=== PATIENT | female | born 1945 | race African-American/Black ===

== ENCOUNTER 2017-01-26 13:24 | Emergency (ER) | payer OTHER, MEDICAID ==
[2017-01-26 13:29] VITALS: BP 184/81; BMI 30.9
--- NOTE | 2017-01-26 13:59 | DR.GENAD ---
HPI - PCP Primary Care Physician: FIOR KESSLER - Complaint/Symptoms Chief Complaint Doctors Comments: Patient fell times two last week, injured left ankle and now c/o of left lower extremity is swollen. She has had cardiac surgery by-pass and stents now doing well. Denies dyspnea. She has a cane for assistent ambulation but each time she fell was without cane. Chief Complaint:: FELL TWICE LAST WEEK AND AFTER THE FALL SHE NOTICED HER FOOT SWOLLEN AND NOW ITS UP HER LEG. - Source History Provided: Patient - Mode of Arrival Mode of Arrival: Ambulatory - Timing Onset of Chief Complaint: 01/21/17 PMH - PMH Past Medical History: Yes Past Medical History: Angina, Arthritis, Coronary Artery Disease, Diabetes, Dyslipidemia, GERD, Hypertension, [place] Past Surgical History: Yes Surgical History: CABG/Valve Surgery, Joint Replacement, Ortho Surgery - Family History History of Family Medical Conditions: Yes Family Medical History: Diabetes Mellitus, Cancer, [place], Coronary Artery Disease, Heart Failure, Hypertension - Social History Does patient currently use any type of tobacco product: No Have you used tobacco products in the last 12 months: No Type of Tobacco Use: None Does any household member use tobacco: No Alcohol Use: None Do you use any recreational Drugs:: No Lives With: Family Lives Where: Home - infectious screening In the last 2 months have you had wt loss of >10#?: NO Have you had fever, night sweats or hemotysis?: No Have you traveled outside the country in the last 6 months?: No Isolation: Standard ROS - Review of Systems Constitutional: No Symptoms Reported Eyes: No Symptoms Reported ENTM: No Symptoms Reported Respiratoy: No Symptoms Reported Cardiovascular: No Symptoms Reported Gastrointestinal/Abdominal: Abdominal Pain Neurological: No Symptoms Reported Musculoskeletal: No Symptoms Reported Integumentary: No Symptoms Reported Hematologic/Lymphatic: No Symptoms Reported Endocrine: No Symptoms Reported Psychiatric: No Symptoms Reported All Other Systems: Reviewed and Negative PE - Vital Signs Vitals: Temperature 98.8 F Pulse Rate 82 Respiratory Rate 20 Blood Pressure [Left Arm] 129/77 Blood Pressure [Right Arm] 162/74 Blood Pressure 184/81 O2 Sat by Pulse Oximetry 98 - General Limitations: No Limitations General Appearance: Alert, In No Apparent Distress - Head Head Exam: Normal Inspection - Eyes Eye exam: Normal Appearance, PERRL, EOMI - ENT ENT Exam: Normal Exam External Ear Exam: Normal External Inspection TM/Canal Exam: Bilateral Normal Nose Exam: Normal Nose Exam Mouth Exam: Normal Inspection Throat Exam: Normal Inspection - Neck Neck Exam: Normal Inspection - Chest Chest Inspection: Normal Inspection - Respiratory Respiratory Exam: Normal Lung Sounds Bilat Respiratory Exam: Bilateral Clear to Auscultation - Cardiovascular Cardiovascular Exam: Regular Rate, Bradycardia - Abdominal Exam Abdominal Exam: Normal Inspection, Normal Bowel Sounds Abdominal Tenderness: negative: RUQ, RLQ, LUQ, LLQ, Epigastrium, Suprapubic, Diffuse, Mild, Moderate, Severe, Other - Extremities Extremities Exam: Edema (left lower extremity) - Back Back Exam: Normal Inspection - Neurologic Neurological Exam: Alert, Oriented X3, CN II-XII Intact - Psychiatric Psychiatric Exam: Normal Affect - Skin Skin Exam: Warm, Dry, Intact Course - Treatment Treatment: Cast: anterior posterior - Reevaluation 1st: Improved ROR - XRAY XRAY Interpreted by: Radiologist (Nosdisplaced closed spiral fracture distal fibular shaft.) - Diagnosis Discharge Problem: Closed left fibular fracture Qualifiers: Encounter type: initial encounter Fibula location: distal Fracture morphology: unspecified fracture morphology Qualified Code(s): S82.832A - Other fracture of upper and lower end of left fibula, initial encounter for closed fracture - Discharge Plan Condition: Stable - Follow ups/Referrals Follow ups/Referrals: NANCY KESSLER [Primary Care Provider] - 3 days - Instructions
--- NOTE | 2017-01-26 14:43 | RAD ---
HISTORY: Injury, fall, left ankle pain Study: Left ankle three view Comparison: None Findings: There is an oblique spiral fracture of the shaft of the distal fibula, nondisplaced. Associated late ral soft tissue swelling is present. The distal tibia, tibiotalar joint, talus and subtalar joints a re intact. IMPRESSION: Nondisplaced closed spiral fracture distal fibular shaft Reported By:
== END 2017-01-26 15:29 | disposition home or self-care (01) ==
LOC: ER 13:30
PROC: 2W3MX1Z Immobilization of Left Lower Extremity using Splint (ICD-10-PCS; principal; 2017-01-26)
DX: S82.832A Other fracture of upper and lower end of left fibula, initial encounter for closed fracture (principal); W19.XXXA Unspecified fall, initial encounter; Y92.9 Unspecified place or not applicable
CPT/HCPCS: 29515; 36415; 73610; 85378; 99282; 99283

== ENCOUNTER → 2017-01-27 | Outpatient (CLI) | payer OTHER, MEDICAID ==
[2017-01-26 13:29] VITALS: BP 184/81
--- NOTE | 2017-01-27 17:57 | VAS ---
HISTORY: Leg pain and swelling Study: Venous Doppler study of the left leg. Comparison: None TECHNIQUE: Multiple short scale and color flow Doppler images of the deep venous system were obtaine d of the left lower extremity. FINDINGS: The deep venous system of the left lower extremity was evaluated from the level of the common femora l vein through the popliteal vein. Normal color flow and augmentation can be observed. In addition , normal compression is seen throughout the deep venous system. IMPRESSION: 1. Negative for DVT. Reported By:
== END ==
LOC: RAD 15:22
PROVIDERS: ATTEND Psychiatry & Neurology Neurology
DX: R60.0 Localized edema (principal)
CPT/HCPCS: 93971

== ENCOUNTER → 2017-03-02 | Outpatient (CLI) | payer OTHER, MEDICAID ==
--- NOTE | 2017-03-02 15:53 | RAD ---
History: Status post fall 1 month ago, fibular fracture followup. Technique: AP and lateral views of the left foreleg Comparison: Radiographs of the left ankle dated 01/26/2017 Findings: There is a casting material present which obscures evaluation of fine bony detail. There is soft tis yvette swelling along the lateral aspect of the foreleg. There is generalized osteopenia. There is a tr ansverse fracture through the distal fibular diaphysis approximate 3.7 cm proximal to the tibial brenda fond, which demonstrates approximately 2 mm posterior displacement of the distal fragment. Remainder of the osseous structures appear intact. No significant callus formation is appreciated. Impression: 1. Nondisplaced fracture of the distal fibular diaphysis as discussed above, without evidence of sig nificant healing/callus formation. 2. Osteopenia Reported By:
== END | disposition home or self-care (01) | DRG 556 ==
LOC: RAD 12:03
PROVIDERS: ATTEND Specialist
DX: M79.662 Pain in left lower leg (principal); M85.862 Other specified disorders of bone density and structure, left lower leg; S82.832A Other fracture of upper and lower end of left fibula, initial encounter for closed fracture; X58.XXXA Exposure to other specified factors, initial encounter
CPT/HCPCS: 73590

== ENCOUNTER → 2017-03-22 | Outpatient (CLI) | payer OTHER, MEDICAID ==
--- NOTE | 2017-03-22 11:07 | RAD ---
HISTORY: Bilateral shoulder pain. Study: Multiple views of the bilateral shoulders. Comparison: Left shoulder series dated September 06, 2016. 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 Associated subacromial spurr ing. Mild/moderate osteoarthritis of the bilateral glenohumeral joints. The soft tissues are unrema rkable. The visualized lung is clear. IMPRESSION: Chronic findings as above. Reported By:
[2017-03-22 11:10] LABS: BASOPHILS % (AUTO) 0.4 % (0.2-1.0); EOSINOPHILS # (AUTO) 0.2 x10^3/uL (0.0-0.2); EOSINOPHILS % (AUTO) 3.5 % (0.9-2.9); HEMATOCRIT 35.6 % (36.0-47.0); HEMOGLOBIN 11.9 g/dL (12.0-16.0); LYMPHOCYTES # (AUTO) 2.3 X10^3/uL (1.3-2.9); LYMPHOCYTES % (AUTO) 36.3 % (21.0-51.0); MEAN CORPUSCULAR HEMOGLOBIN 27.2 pg (27.0-34.0); MEAN CORPUSCULAR HGB CONC 33.5 g/dL (33.0-35.0); MEAN CORPUSCULAR VOLUME 81.4 fL (80.0-100.0); MEAN PLATELET VOLUME 7.9 fL (7.4-11.0); MONOCYTES # (AUTO) 0.4 x10^3/uL (0.3-0.8); MONOCYTES % (AUTO) 6.5 % (0.0-13.0); NEUTROPHILS # (AUTO) 3.3 x10^3/uL (2.2-4.8); NEUTROPHILS % (AUTO) 53.3 % (42.0-75.0); PLATELET COUNT 251 X10^3/uL (150.0-450.0); RED BLOOD COUNT 4.37 X10^6/uL (3.5-5.4); RED CELL DISTRIBUTION WIDTH 15.9 % (11.6-16.5); WHITE BLOOD COUNT 6.2 X10^3/uL (3.6-10.0)
[2017-03-22 11:19] LABS: HEMOGLOBIN A1C 7.7 % (4.5-6.2)
[2017-03-22 11:30] LABS: ALANINE AMINOTRANSFERASE 16 Units/L (12-78); ALKALINE PHOSPHATASE 114 Units/L (46-116); ASPARTATE AMINO TRANSFERASE 12 Units/L (15-37); BILIRUBIN,DIRECT 0.07 mg/dL (0-0.2); BLOOD UREA NITROGEN 15 mg/dL (7-18); CALCIUM 8.8 mg/dL (8.5-10.1); CARBON DIOXIDE 26.5 mmol/L (21-32); CHLORIDE 108 mmol/L (98-107); CHOL/HDL RATIO 3.2 (0.0-5.0); CHOLESTEROL 124 mg/dL (0-200); CREATININE 1.87 mg/dL (0.55-1.02); GLUCOSE 87 mg/dL (65-99); HDL CHOLESTEROL 39 mg/dL (40-60); SODIUM 142 mmol/L (136-145); T4 (THYROXINE) 11.6 ug/dL (4.7-13.3); TOTAL PROTEIN 7.4 g/dL (6.4-8.2); TRIGLYCERIDES 106 mg/dL (0-150); TSH (3RD GENERATION) 0.736 uIU/mL (0.358-3.74); eGFR BLACK RACES 34 (>60); eGFR NON BLACK RACES 28 (>60)
[2017-03-22 11:39] LABS: CREATININE,URINE 46.58 mg/dL (29-226); MICROALBUMIN,URINE 21.6 mg/L
== END ==
LOC: RAD 10:17
PROVIDERS: ATTEND Nurse Practitioner Family
DX: M25.511 Pain in right shoulder (principal); M25.512 Pain in left shoulder; E78.4 Other hyperlipidemia; E11.29 Type 2 diabetes mellitus with other diabetic kidney complication; I10 Essential (primary) hypertension; M85.9 Disorder of bone density and structure, unspecified
CPT/HCPCS: 36415; 73030; 80048; 80061; 80076; 82043; 82306; 83036; 84436; 84443; 85025

== ENCOUNTER → 2017-03-30 | Outpatient (CLI) | payer OTHER, MEDICAID ==
--- NOTE | 2017-03-30 10:39 | RAD ---
HISTORY: Follow up fibular fracture Study: Left ankle three views Comparison: January 26, 2017 Findings: The previously noted distal fibular fracture is again identified. There is evidence for healing. Hea ling is not complete. Position alignment is unchanged. The distal tibia and tibiotalar joints are in tact. Lateral soft tissue swelling remains. IMPRESSION: Healing distal fibular shaft fracture Reported By:
== END ==
LOC: RAD 09:55
PROVIDERS: ATTEND Orthopaedic Surgery
DX: S82.65XA Nondisplaced fracture of lateral malleolus of left fibula, initial encounter for closed fracture (principal); X58.XXXA Exposure to other specified factors, initial encounter
CPT/HCPCS: 73610

== ENCOUNTER → 2017-04-06 | Outpatient (CLI) | payer OTHER, MEDICAID ==
--- NOTE | 2017-04-06 10:06 | MRI ---
HISTORY: Chronic low back pain, spondylolysis Study: MRI lumbar spine without contrast Comparison: None Technique: Multiplanar multi-sequence MRI of the lumbar spine was obtained. Sagittal T1, sagittal T 2, and stir weighted images, axial T1, and axial T2 images were obtained. Findings: There is grade 1 anterolisthesis L4 on L5 which appears to be due to bilateral spondylolysis at L4. The lumbar spine demonstrates otherwise normal alignment with the expected signal characteristics of the bone marrow. The conus of the cord terminates normally. T12 -- L1: No evidence for compressive disc disease. The neural foramina are patent. The joints are normal. L1 -- L2: No evidence for compressive disc disease. The neural foramina are patent. Mild facet arthr opathy is present. L2 -- L3: Mild concentric disc bulging is present contributing to mild lateral recess narrowing bila terally.. The neural foramina are patent. Bilateral facet arthropathy is present. L3 -- L4: Concentric disc bulging contributes along with ligamentous hypertrophy and facet arthropat hy to a mild spinal stenosis with mild lateral recess and foraminal narrowing bilaterally. L4 -- L5: There is grade 1 anterolisthesis L4 on L5 secondary to bilateral spondylolysis at L4. The anterolisthesis contributes along with disc bulging ligamentous hypertrophy and facet arthropathy to a severe spinal stenosis with severe lateral recess and foraminal narrowing bilaterally slightly wo rse on the left than the right. L5 -- S1: Broad-based disc protrusion effaces the thecal sac and contributes along with ligamentous hypertrophy and facet arthropathy to a relative spinal stenosis with significant lateral recess and foraminal narrowing bilaterally. IMPRESSION: As above Reported By:
== END ==
LOC: RAD 08:27
PROVIDERS: ATTEND Nurse Practitioner Family
DX: M47.896 Other spondylosis, lumbar region (principal)
CPT/HCPCS: 72148

== ENCOUNTER 2017-04-07 06:58 | Emergency (ER) | payer OTHER, MEDICAID ==
[2017-04-07] MEDS ORDERED: D50W ABBOJECT SYR ONE (07:00)
[2017-04-07] MEDS ORDERED: D5 NS 1000 ML 1,000 ML IV ONE (07:07)
[2017-04-07] MEDS ORDERED: D50W ABBOJECT SYR IV ONE (07:07)
[2017-04-07 07:08] VITALS: BMI 28.2
--- NOTE | 2017-04-07 07:19 | DR.AMS ---
HPI - Time Seen Time seen: 06:55 - Complaint Cheif Complaint Doctors Comments: Patient presented to the ED via EMS secondary to being unconscious due to low blood glucose. IV access was unable to be obtained in the field. Her glucose was less than 10mg/dl per finger stick. IV access obtained she was given D50 bolus, glucose obtained measured via accucheck of 200mg/dl. She was started on D5NS bolus. At 0725 patient is alert responding appropriately to questions. She states that she gave herself 15U of insulin yesterday AM and did not eat all day. <MEGAN UMANZOR - Last Filed: 04/07/17 08:06> PMH - PMH Past Medical History: Angina, Arthritis, Coronary Artery Disease, Diabetes, Dyslipidemia, GERD, Hypertension, [place] Past Surgical History: Yes Surgical History: CABG/Valve Surgery, Joint Replacement, Ortho Surgery - Family History Family Medical History: Diabetes Mellitus, Cancer, [place], Coronary Artery Disease, Heart Failure, Hypertension - Social History Do you use any recreational Drugs:: No <MEGAN UMANZOR - Last Filed: 04/07/17 08:06> ROS - Review of Systems Constitutional: negative: Diaphoresis Eyes: No Symptoms Reported ENTM: No Symptoms Reported Respiratoy: No Symptoms Reported Cardiovascular: No Symptoms Reported, Chest Pain Genitourinary: No Symptoms Reported Neurological: No Symptoms Reported Musculoskeletal: No Symptoms Reported Integumentary: No Symptoms Reported Hematologic/Lymphatic: No Symptoms Reported Endocrine: No Symptoms Reported Psychiatric: No Symptoms Reported All Other Systems: Reviewed and Negative <MEGAN UMANZOR - Last Filed: 04/07/17 08:06> PE - General Limitations: No Limitations General Appearance: Alert, In No Apparent Distress - Head Head Exam: Normal Inspection - Eyes Eye exam: Normal Appearance, PERRL, EOMI Pupils: Regular, Round: Bilateral - ENT ENT Exam: Normal Exam External Ear Exam: Normal External Inspection TM/Canal Exam: Bilateral Normal Nose Exam: Normal Nose Exam Mouth Exam: Normal Inspection Throat Exam: Normal Inspection - Neck Neck Exam: Normal Inspection - Chest Chest Inspection: Normal Inspection, Symmetric Chest Wall Rise - Respiratory Respiratory Exam: Normal Lung Sounds Bilat Respiratory Exam: Bilateral Clear to Auscultation - Cardiovascular Cardiovascular Exam: Regular Rate, Normal Rhythm - Abdominal Exam Abdominal Exam: Normal Inspection, Normal Bowel Sounds Abdominal Tenderness: negative: RUQ, RLQ, LUQ, LLQ, Epigastrium, Suprapubic, Diffuse, Mild, Moderate, Severe, Other - Extremities Extremities Exam: Normal Inspection, Full ROM - Back Back Exam: Normal Inspection, Full ROM - Neurological Neurological Exam: Alert, Oriented X3, CN II-XII Intact Cranial Nerve Exam: EOM Function (II, III, IV, ): Normal <MEGAN UMANZOR - Last Filed: 04/07/17 08:06> ROR - Labs Reviewed Result Diagrams: 04/07/17 07:04 04/07/17 07:04 - XRAY XRAY Interpreted by: Radiologist (chest: cardiomegaly w/o CHF) <MEGAN UMANZOR - Last Filed: 04/07/17 08:06> - Labs Reviewed Result Diagrams: 04/07/17 07:04 04/07/17 07:04 <SARAH COLEMAN - Last Filed: 04/07/17 18:47> - Labs Reviewed Laboratory: WBC 6.2 X10^3/uL (3.6-10.0) 04/07/17 07:04 RBC 4.37 X10^6/uL (3.5-5.4) 04/07/17 07:04 Hgb 12.0 g/dL (12.0-16.0) 04/07/17 07:04 Hct 35.4 % (36.0-47.0) L 04/07/17 07:04 MCV 81.0 fL (80.0-100.0) 04/07/17 07:04 MCH 27.4 pg (27.0-34.0) 04/07/17 07:04 MCHC 33.9 g/dL (33.0-35.0) 04/07/17 07:04 RDW 16.6 % (11.6-16.5) H 04/07/17 07:04 Plt Count 287 X10^3/uL (150.0-450.0) 04/07/17 07:04 MPV 7.3 fL (7.4-11.0) L 04/07/17 07:04 Neut % 43.9 % (42.0-75.0) 04/07/17 07:04 Lymph % 41.7 % (21.0-51.0) 04/07/17 07:04 [place] % 7.3 % (0.0-13.0) 04/07/17 07:04 Eos % 6.0 % (0.9-2.9) H 04/07/17 07:04 Baso % 1.1 % (0.2-1.0) H 04/07/17 07:04 Neut # 2.7 x10^3/uL (2.2-4.8) 04/07/17 07:04 Lymph # 2.6 X10^3/uL (1.3-2.9) 04/07/17 07:04 [place] # 0.5 x10^3/uL (0.3-0.8) 04/07/17 07:04 Eos # 0.4 x10^3/uL (0.0-0.2) H 04/07/17 07:04 Baso # 0.1 X10^3/uL (0.0-0.1) 04/07/17 07:04 Absolute Nucleated RBC 0.0 /100WBC 04/07/17 07:04 Sodium 145 mmol/L (136-145) 04/07/17 07:04 Corrected Sodium TNP 04/07/17 07:04 Potassium 3.6 mmol/L (3.5-5.1) 04/07/17 07:04 Chloride 111 mmol/L (98-107) H 04/07/17 07:04 Carbon Dioxide 25.3 mmol/L (21-32) 04/07/17 07:04 BUN 18 mg/dL (7-18) 04/07/17 07:04 Creatinine 1.85 mg/dL (0.55-1.02) H 04/07/17 07:04 Est GFR (MDRD) Af Amer 35 (>60) L 04/07/17 07:04 Est GFR (MDRD) Non-Af 29 (>60) L 04/07/17 07:04 Glucose 36 mg/dL (65-99) L* 04/07/17 07:04 Hemoglobin A1c 8.0 % (4.5-6.2) H 04/07/17 07:04 Calcium 8.7 mg/dL (8.5-10.1) 04/07/17 07:04 Corrected Calcium TNP 04/07/17 07:04 Total Bilirubin 0.20 mg/dL (0.2-1.0) 04/07/17 07:04 AST 12 Units/L (15-37) L 04/07/17 07:04 ALT 15 Units/L (12-78) 04/07/17 07:04 Alkaline Phosphatase 105 Units/L (46-116) 04/07/17 07:04 Creatine Kinase 160 Units/L (26-192) 04/07/17 07:04 CK-MB (CK-2) < 1.0 ng/mL (0-4.0) 04/07/17 07:04 CK/CKMB % Calc 0.6 % (<4) 04/07/17 07:04 Troponin I < 0.02 ng/mL (0-1.5) 04/07/17 07:04 Total Protein 7.3 g/dL (6.4-8.2) 04/07/17 07:04 Albumin 3.6 g/dL (3.4-5.0) 04/07/17 07:04 Globulin 3.7 g/dL (2.5-4.5) 04/07/17 07:04 Albumin/Globulin Ratio 1.0 Ratio (1.1-2.1) L 04/07/17 07:04 (SARAH COLEMAN) <MEGAN UMANZOR - Last Filed: 04/07/17 08:06> <SARAH COLEMAN - Last Filed: 04/07/17 18:47> - Diagnosis Discharge Problem: Hypoglycemia - Discharge Plan Disposition: 01 HOME, SELF-CARE Condition: Stable - Follow ups/Referrals Follow ups/Referrals: CHIQUITA MAXWELL [Primary Care Provider] - 3 days - Instructions Instructions: Hypoglycemia, Blood Glucose Monitoring, Adult, Hypoglycemia, Easy -to-Read
[2017-04-07 07:23] LABS: BASOPHILS # (AUTO) 0.1 X10^3/uL (0.0-0.1); BASOPHILS % (AUTO) 1.1 % (0.2-1.0); EOSINOPHILS # (AUTO) 0.4 x10^3/uL (0.0-0.2); HEMATOCRIT 35.4 % (36.0-47.0); LYMPHOCYTES # (AUTO) 2.6 X10^3/uL (1.3-2.9); LYMPHOCYTES % (AUTO) 41.7 % (21.0-51.0); MEAN CORPUSCULAR HEMOGLOBIN 27.4 pg (27.0-34.0); MEAN CORPUSCULAR HGB CONC 33.9 g/dL (33.0-35.0); MEAN PLATELET VOLUME 7.3 fL (7.4-11.0); MONOCYTES # (AUTO) 0.5 x10^3/uL (0.3-0.8); MONOCYTES % (AUTO) 7.3 % (0.0-13.0); NEUTROPHILS # (AUTO) 2.7 x10^3/uL (2.2-4.8); NEUTROPHILS % (AUTO) 43.9 % (42.0-75.0); PLATELET COUNT 287 X10^3/uL (150.0-450.0); RED BLOOD COUNT 4.37 X10^6/uL (3.5-5.4); RED CELL DISTRIBUTION WIDTH 16.6 % (11.6-16.5); WHITE BLOOD COUNT 6.2 X10^3/uL (3.6-10.0)
--- NOTE | 2017-04-07 07:49 | RAD ---
HISTORY: Hypoglycemia, unresponsive Study: Chest one view Comparison: November 05, 2016 Findings: The trachea is midline. The cardiac silhouette is enlarged. No congestive heart failure is noted.. The lungs are clear without focal infiltrate or effusion. The bony thorax is unremarkable. The pa tient is status post median sternotomy and CABG. IMPRESSION: 1. Cardiomegaly without congestive heart failure 2. Lungs clear Reported By:
[2017-04-07 07:59] LABS: ALANINE AMINOTRANSFERASE 15 Units/L (12-78); ALBUMIN 3.6 g/dL (3.4-5.0); ALKALINE PHOSPHATASE 105 Units/L (46-116); ASPARTATE AMINO TRANSFERASE 12 Units/L (15-37); BLOOD UREA NITROGEN 18 mg/dL (7-18); CALCIUM 8.7 mg/dL (8.5-10.1); CARBON DIOXIDE 25.3 mmol/L (21-32); CHLORIDE 111 mmol/L (98-107); CKMB % 0.6 % (<4); CREATINE KINASE 160 Units/L (26-192); CREATINE KINASE MB < 1.0 ng/mL (0-4.0); CREATININE 1.85 mg/dL (0.55-1.02); SODIUM 145 mmol/L (136-145); TOTAL PROTEIN 7.3 g/dL (6.4-8.2); TROPONIN I < 0.02 ng/mL (0-1.5); eGFR BLACK RACES 35 (>60); eGFR NON BLACK RACES 29 (>60)
[2017-04-07 08:00] LABS: GLUCOSE 36 mg/dL (65-99)
[2017-04-07] MEDS ORDERED: NS 1000 ML 1,000 ML ONE (08:09)
[2017-04-07 08:38] VITALS: BP 153/69
[2017-04-07 08:39] LABS: SERUM ACETONE NEGATIVE (NEGATIVE)
[2017-04-07] MEDS ORDERED: NS 1000 ML 1,000 ML IV SCH (09:00)
== END 2017-04-07 08:44 | disposition home or self-care (01) ==
LOC: ER 06:58
DX: E16.2 Hypoglycemia, unspecified (principal); I51.7 Cardiomegaly
CPT/HCPCS: 36415; 71010; 80053; 82009; 82550; 82553; 83036; 84484; 85025; 93005; 93010; 96365; 96374; 96375; 99283; A4222; J3490

== ENCOUNTER → 2017-07-05 | Outpatient (CLI) | payer OTHER, MEDICAID ==
--- NOTE | 2017-07-07 12:40 | RAD ---
HISTORY: Degenerative disc disease. Study: Three views of the thoracic spine and five views of the lumbar spine. Comparison: Lumbar spine series dated March 21, 2013. Findings: 12 rib-bearing thoracic vertebra and 5 [id number] lumbar vertebra. No acute fracture. Grade 2 an terior listhesis of L4 on L5 that is likely degenerative appears unchanged given technique. Severe di sc space narrowing is also seen at L4-L5. Multilevel facet arthrosis. Moderate to severe disc space n arrowing is seen within the mid thoracic spine. Multilevel anterior disc osteophyte complexes. Diffus e osteopenia. The cardiac silhouette and lungs appear normal. Vascular calcifications. Calcified fibr oids. The SI joints are unremarkable. IMPRESSION: Chronic findings as above. Reported By:
--- NOTE | 2017-07-07 12:40 | RAD ---
HISTORY: Degenerative disc disease. Study: Three views of the thoracic spine and five views of the lumbar spine. Comparison: Lumbar spine series dated March 21, 2013. Findings: 12 rib-bearing thoracic vertebra and 5 [id number] lumbar vertebra. No acute fracture. Grade 2 an terior listhesis of L4 on L5 that is likely degenerative appears unchanged given technique. Severe di sc space narrowing is also seen at L4-L5. Multilevel facet arthrosis. Moderate to severe disc space n arrowing is seen within the mid thoracic spine. Multilevel anterior disc osteophyte complexes. Diffus e osteopenia. The cardiac silhouette and lungs appear normal. Vascular calcifications. Calcified fibr oids. The SI joints are unremarkable. IMPRESSION: Chronic findings as above. Reported By:
--- NOTE | 2017-07-07 12:49 | RAD ---
HISTORY: Degenerative disc disease. Study: 6 views of the cervical spine. Comparison: CT cervical spine dated March 11, 2011. Findings: Straightening of the normal cervical lordosis without acute fracture or listhesis. Moderate to severe disc space narrowing at C5 through C7 with associated endplate sclerosis and anterior disc osteophyt e complexes. Multilevel uncovertebral hypertrophy. Mild to moderate bilateral neural foraminal narrow ing on oblique imaging. The dens is intact. Vascular calcifications are seen. The lung apices are sabrina ar. IMPRESSION: Chronic findings as above. Reported By:
== END ==
LOC: RAD 10:33
PROVIDERS: ATTEND Nurse Practitioner Family
DX: M51.36 Other intervertebral disc degeneration, lumbar region (principal)
CPT/HCPCS: 72050; 72072; 72110

== ENCOUNTER → 2017-07-26 | Outpatient (CLI) | payer OTHER, MEDICAID ==
--- NOTE | 2017-07-26 10:20 | RAD ---
History: Follow-up of left ankle fracture Study: AP lateral and oblique views of the left ankle Comparison: March 30, 2017 Findings: There is callus formation with a healed fracture of the distal left fibular diaphysis in ov erall anatomical alignment. The ankle mortise is intact. There is peripheral distal moderate to sever e arterial vascular calcification. There are degenerative changes in the tarsal joints. Impression: Healed distal fibular fracture Reported By:
== END ==
LOC: RAD 09:04
PROVIDERS: ATTEND Nurse Practitioner Family
DX: S82.62XA Displaced fracture of lateral malleolus of left fibula, initial encounter for closed fracture (principal); X58.XXXA Exposure to other specified factors, initial encounter
CPT/HCPCS: 73610

== ENCOUNTER → 2017-10-31 | Outpatient (CLI) | payer OTHER, MEDICAID ==
--- NOTE | 2017-11-01 12:18 | MG ---
HISTORY: SCREENING Comparison: 10/05/2016 FINDINGS: Bilateral CC and MLO projections of the right and left breast were obtained. Scattered fibroglandula r tissue is seen to be present. No significant architectural distortion, mass or clustered microcalc ifications can be observed to suggest malignancy. No skin thickening or nipple retraction is appreci ated. No pathological lymphadenopathy can be identified. Benign-appearing calcifications scattered throughout the right and left breasts are observed. IMPRESSION: NO RADIOGRAPHIC EVIDENCE OF MALIGNANCY. ACR CATEGORY: 2 - benign findings. FOLLOW-UP EXAM 1 YEAR. Diagnostic CAD was utilized and reviewed. * 0 (ZERO) - ASSESSMENT INCOMPLETE; ADDITIONAL IMAGING IS NEEDED. * 1/ (ONE) - NEGATIVE. * 2/II (TWO) - BENIGN FINDINGS. * 3/III (THREE) - PROBABLY BENIGN FINDING; SHORT INTERVAL FOLLOW-UP SUGGESTED. * 4/IV (FOUR) - SUSPICIOUS ABNORMALITY; BIOPSY SHOULD BE CONSIDERED. * 5/V - HIGHLY SUSPICIOUS OF MALIGNANCY; BIOPSY SHOULD BE PERFORMED. A NEGATIVE X-RAY REPORT SHOULD NOT DELAY BIOPSY IF A DOMINANT OR CLINICALLY SUSPICIOUS MASS IS PRESENT; 4 TO 8 PERCENT OF CANCERS ARE NOT IDENTIFIED BY X-RAY. A NEGA TIVE REPORT MAY REINFORCE THE CLINICAL IMPRESSION. ADENOSIS AND DENSE BREASTS MAY OBSCURE AN UNDERLY ING NEOPLASM. Reported By:
== END ==
LOC: RAD 10:03
PROVIDERS: ATTEND Psychiatry & Neurology Neurology
DX: Z12.31 Encounter for screening mammogram for malignant neoplasm of breast (principal)
CPT/HCPCS: 77067

== ENCOUNTER 2020-11-28 09:52 | Inpatient (IN) ==
[~2020-11-28 09:52] MED LIST: LEVAQUIN PREMIX IV 750 MG 750 MG/150 ML BAG IV NR
[2020-11-28] MEDS ORDERED: D50W ABBOJECT SYR ONE (09:55)
[2020-11-28 10:10] VITALS: BMI 25.7
--- NOTE | 2020-11-28 10:17 | DR.AMS ---
HPI Time Seen Time Seen by Provider: 11/28/20 10:00 PCP Primary Care Physician: FIOR KESSLER HPI Comment HPI Comment: Patient brought in via EMS.Found unresponsive by family this morning. BS 25 per EMS. Given 1 amp D50 via EMS. patient is minimally responsive now. Answers some questions and notes that she has not been feeling well for a few days. She was not able to tell the events of last night/this morning. Complaint Chief Complaint:: EMS STATES FAMILY CALLS AND STATES PT. WAS FOUND UNRESPONSIVE THIS MORNING. INITIAL BLOOD GLUCOSE WAS 25MG/DL UPON EMS ARRIVAL. PT. WAS GIVEN ONE AMP OF D50 EN ROUTE AND PT. REMAINS UNRESPONSIVE UPON ARRIVAL TO THE ER. Source History Provided: EMS Mode of Arrival Mode of Arrival: EMS Timing Onset of Chief Complaint: 11/28/20 PMH PMH Past Medical History: Yes Past Medical History: Angina, Arthritis, Coronary Artery Disease, Diabetes, Dyslipidemia, GERD, Hypertension and RI Past Surgical History: Yes Surgical History: CABG/Valve Surgery, Joint Replacement and Ortho Surgery Family History History of Family Medical Conditions: Yes Family Medical History: Diabetes Mellitus, Cancer, RI, Coronary Artery Disease, Heart Failure and Hypertension Social History Does patient currently use any type of tobacco product: No Have you used tobacco products in the last 12 months: No Type of Tobacco Use: None Does any household member use tobacco: No Alcohol Use: None Do you use any recreational Drugs:: No Lives With: Family Lives Where: Home Infectious screening In the last 2 months have you had wt loss of >10#?: NO Have you had fever, night sweats or hemotysis?: No Have you traveled outside the country in the last 6 months?: No Isolation: Standard ROS Review of Systems Constitutional: See HPI Unable to Obtain Due To: Altered mental status PE Vitals Vital Signs: Temp Pulse Resp BP BP BP Pulse Ox 11/28/20 11:01 40 L 11 L 100/56 100 11/28/20 11:00 40 L 11 L 100 11/28/20 10:45 40 L 11 L 11/28/20 10:40 40 L 12 122/60 11/28/20 10:32 40 L 11 L 145/67 11/28/20 10:31 40 L 11 L 11/28/20 10:30 41 L 12 11/28/20 10:15 39 L 14 11/28/20 10:07 91 F L 40 L 12 127/61 100 11/28/20 10:00 40 L 13 10/29/20 07:04 203/81 10/29/20 04:00 192/110 04/07/17 08:37 153/69 General Limitations: Altered Mental Status General Appearance: In No Apparent Distress and Lethargic Head Head Exam: Normal Inspection, Atraumatic and Normocephalic Eyes Pupils: Regular, Round: Bilateral and Reactive: Bilateral ENT ENT Exam: Normal Exam and Other (large amount of snuff in mouth) Neck Neck Exam: Normal Inspection, Full ROM and Trachea Midline Chest Chest Inspection: Normal Inspection and Symmetric Chest Wall Rise Respiratory Respiratory Exam: Normal Lung Sounds Bilat Respiratory Exam: Bilateral: Clear to Auscultation Cardiovascular Cardiovascular Exam: Normal Rhythm and Bradycardia Abdominal Exam Abdominal Exam: Normal Inspection, Normal Bowel Sounds and Soft Extremities Extremities Exam: Normal Inspection Neurological Neurological Exam: Other (oriented x 1 self) Patient Oriented To: Person Skin Skin Exam: Dry and Other (cold) COURSE Reevaluation 1st: Improved (improved after rewarming, D50 bolus and D10 gtt) 2nd: Worsened (Patient remains hypothermic with Rectal temp 90.8. Patient under warming blanket. Will start warmed IVF. ) Consultation Consultation Comments: Spoke with Dr. Meyer who has accepted patient to his service. [facility] Labs Reviewed Laboratory Results Reviewed?: Yes Result Diagrams: 11/28/20 10:05 11/28/20 10:05 Laboratory: WBC 5.9 X10^3/uL (3.6-10.0) 11/28/20 10:05 RBC 4.33 X10^6/uL (3.5-5.4) 11/28/20 10:05 Hgb 11.8 g/dL (12.0-16.0) L 11/28/20 10:05 Hct 35.4 % (36.0-47.0) L 11/28/20 10:05 MCV 81.9 fL (80.0-100.0) 11/28/20 10:05 MCH 27.3 pg (27.0-34.0) 11/28/20 10:05 MCHC 33.3 g/dL (33.0-35.0) 11/28/20 10:05 RDW 18.0 % (11.6-16.5) H 11/28/20 10:05 Plt Count 323 X10^3/uL (150.0-450.0) 11/28/20 10:05 MPV 7.1 fL (7.4-11.0) L 11/28/20 10:05 Neut % (Auto) 56.1 % (42.0-75.0) 11/28/20 10:05 Lymph % (Auto) 31.4 % (21.0-51.0) 11/28/20 10:05 [place] % (Auto) 7.1 % (0.0-13.0) 11/28/20 10:05 Eos % (Auto) 4.1 % (0.9-2.9) H 11/28/20 10:05 Baso % (Auto) 1.3 % (0.2-1.0) H 11/28/20 10:05 Neut # (Auto) 3.3 x10^3/uL (2.2-4.8) 11/28/20 10:05 Lymph # (Auto) 1.8 X10^3/uL (1.3-2.9) 11/28/20 10:05 [place] # (Auto) 0.4 x10^3/uL (0.3-0.8) 11/28/20 10:05 Eos # (Auto) 0.2 x10^3/uL (0.0-0.2) 11/28/20 10:05 Baso # (Auto) 0.1 X10^3/uL (0.0-0.1) 11/28/20 10:05 Absolute Nucleated RBC 0.1 /100WBC 11/28/20 10:05 Sodium 138 mmol/L (136-145) 11/28/20 10:05 Corrected Sodium 139 mmol/L (136-145) 11/28/20 10:05 Potassium 2.1 mmol/L (3.5-5.1) L* 11/28/20 10:05 Chloride 102 mmol/L (98-107) 11/28/20 10:05 Carbon Dioxide 26.8 mmol/L (21-32) 11/28/20 10:05 BUN 21 mg/dL (7-18) H 11/28/20 10:05 Creatinine 2.21 mg/dL (0.55-1.02) H 11/28/20 10:05 Est GFR (MDRD) Af Amer 28 (>60) L 11/28/20 10:05 Est GFR (MDRD) Non-Af 23 (>60) L 11/28/20 10:05 Glucose 155 mg/dL (65-99) H 11/28/20 10:05 Calcium 8.7 mg/dL (8.5-10.1) 11/28/20 10:05 Corrected Calcium 9.5 mg/dL (8.5-10.1) 11/28/20 10:05 Total Bilirubin 0.20 mg/dL (0.2-1.0) 11/28/20 10:05 AST 17 Units/L (15-37) 11/28/20 10:05 ALT 10 Units/L (12-78) L 11/28/20 10:05 Alkaline Phosphatase 63 Units/L (46-116) 11/28/20 10:05 Ammonia < 10 umol/L (11-32) L 11/28/20 10:05 Creatine Kinase 122 Units/L (26-192) 11/28/20 10:05 CK-MB (CK-2) 2.1 ng/mL (0-4.0) 11/28/20 10:05 CK/CKMB % Calc 1.7 % (<4) 11/28/20 10:05 Troponin I < 0.02 ng/mL (0-1.5) 11/28/20 10:05 Total Protein 6.2 g/dL (6.4-8.2) L 11/28/20 10:05 Albumin 3.0 g/dL (3.4-5.0) L 11/28/20 10:05 Globulin 3.2 g/dL (2.5-4.5) 11/28/20 10:05 Albumin/Globulin Ratio 0.9 Ratio (1.1-2.1) L 11/28/20 10:05 Specimen Type Catherized urine 11/28/20 10:05 Urine Color Yellow (YELLOW) 11/28/20 10:05 Urine Appearance Hazy (CLEAR) 11/28/20 10:05 Urine pH 6.0 (5.0 - 8.0) 11/28/20 10:05 Ur Specific [place] 1.010 (1.000-1.030) 11/28/20 10:05 Urine Protein 2+ (NEGATIVE) 11/28/20 10:05 Urine Glucose (UA) Negative (NEGATIVE) 11/28/20 10:05 Urine Ketones Negative (NEGATIVE) 11/28/20 10:05 Urine Occult Blood 2+ (NEGATIVE) 11/28/20 10:05 Urine Nitrite Negative (NEGATIVE) 11/28/20 10:05 Urine Bilirubin Negative (NEGATIVE) 11/28/20 10:05 Urine Urobilinogen Normal (NORMAL) 11/28/20 10:05 Ur Leukocyte Esterase 3+ (NEGATIVE) 11/28/20 10:05 Urine RBC 3-5 /HPF (0-3) A 11/28/20 10:05 Urine WBC Tntc /HPF (0-5) A 11/28/20 10:05 Ur Squamous Epith Cells Rare /HPF (NEGATIVE) 11/28/20 10:05 Urine Bacteria 2+ /HPF (NEGATIVE) 11/28/20 10:05 Urine Mucus Few /HPF (NEGATIVE) 11/28/20 10:05 Ur Culture Indicated? Yes/culture set up 11/28/20 10:05 Urine Opiates Screen Negative (NEG=<300) 11/28/20 10:05 Urine Methadone Screen Negative (NEG=<300) 11/28/20 10:05 Ur Barbiturates Screen Negative (NEG=<200) 11/28/20 10:05 Ur Phencyclidine Scrn Negative (NEG=<25) 11/28/20 10:05 Ur Amphetamines Screen Negative (NEG=<1000) 11/28/20 10:05 U Benzodiazepines Scrn Positive (NEG=<200) A 11/28/20 10:05 Urine Cocaine Screen Negative (NEG=<300) 11/28/20 10:05 U Marijuana (THC) Screen Negative (NEG=<50) 11/28/20 10:05 Influenza Type A Ag Negative-presumptive (NEGATIVE) 11/28/20 11:10 Influenza Type B Ag Negative-presumptive (NEGATIVE) 11/28/20 11:10 SARS CoV-2 RNA Rapid TERRI Negative (NEGATIVE) 11/28/20 11:10 XRAY X-ray Results: HISTORY AMS hypertension. Diabetes. TIA. STUDY BRAIN W/O CON COMPARISON None TECHNIQUE Multiple CT axial images of the head were obtained without IV contrast. Coronal and sagittal images were reconstructed. Dose reduction techniques included Automated Exposure Control (AEC) and adjustment of mA and kV. FINDINGS Age-related findings include central and cortical atrophy with areas of low density in the periventricular white matter compatible with micro-ischemic changes. Two nodular densities are present in the right lateral ventricle ependyma. One measures 11 mm and another measures 7 mm. This could be due to metastatic disease or short matter heterotopia. Recommend MRI of the brain without and with contrast for further evaluation. No cortical infarct or hemorrhage. No midline shift.Cerebellar tonsils are at an appropriate level. No fluid in the sinuses or mucosal thickening to suggest sinusitis. There is no mastoid effusion. Dysconjugate gaze. IMPRESSION 1. 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 Recommend MRI brain without and with contrast 3. No acute infarct or hemorrhage Electronically signed by: Sincere Danielson (Nov 28, 2020 10:43:39) HISTORY AMS STUDY CHEST, 1 VIEW COMPARISON Portable chest September 13, 2019. FINDINGS The trachea is midline. The cardiac silhouette is mildly enlarged but stable.. There are sternotomy wires and surgical clips from CABG surgery. The lungs are clear without focal infiltrate or effusion. The bony thorax is unremarkable. IMPRESSION Stable mild cardiomegaly and postsurgical changes but no acute cardiopulmonary processes. No signs of CHF no significant change from September 13, 2019.. Electronically signed by: RONDA DUBON (Nov 28, 2020 10:33:55) Opioid Opioid Risk Tool Age ([place]ravon box if 16-45): No History of Preadolescent Sexual Abuse: No Total: 0 Total Score Risk Category: Low Risk Copyright: [facility] predicting aberrant behaviors Diagnosis Discharge Problem: Hypoglycemia, Hypokalemia Mental status alteration Qualifiers: Altered mental status type: somnolence Qualified Code(s): R40.0 - Somnolence Hypothermia Qualifiers: Encounter type: initial encounter Qualified Code(s): T68.XXXA - Hypothermia, initial encounter
[2020-11-28 10:26] LABS: BASOPHILS # (AUTO) 0.1 X10^3/uL (0.0-0.1); BASOPHILS % (AUTO) 1.3 % (0.2-1.0); EOSINOPHILS # (AUTO) 0.2 x10^3/uL (0.0-0.2); EOSINOPHILS % (AUTO) 4.1 % (0.9-2.9); HEMATOCRIT 35.4 % (36.0-47.0); HEMOGLOBIN 11.8 g/dL (12.0-16.0); LYMPHOCYTES # (AUTO) 1.8 X10^3/uL (1.3-2.9); LYMPHOCYTES % (AUTO) 31.4 % (21.0-51.0); MEAN CORPUSCULAR HEMOGLOBIN 27.3 pg (27.0-34.0); MEAN CORPUSCULAR HGB CONC 33.3 g/dL (33.0-35.0); MEAN CORPUSCULAR VOLUME 81.9 fL (80.0-100.0); MEAN PLATELET VOLUME 7.1 fL (7.4-11.0); MONOCYTES # (AUTO) 0.4 x10^3/uL (0.3-0.8); MONOCYTES % (AUTO) 7.1 % (0.0-13.0); NEUTROPHILS # (AUTO) 3.3 x10^3/uL (2.2-4.8); NEUTROPHILS % (AUTO) 56.1 % (42.0-75.0); PLATELET COUNT 323 X10^3/uL (150.0-450.0); RED BLOOD COUNT 4.33 X10^6/uL (3.5-5.4); WHITE BLOOD COUNT 5.9 X10^3/uL (3.6-10.0)
[2020-11-28 10:28] LABS: BILIRUBIN,URINE NEGATIVE (NEGATIVE); BLOOD/HEMOGLOBIN,URINE 2+ (NEGATIVE); GLUCOSE, URINE NEGATIVE (NEGATIVE); KETONES,URINE NEGATIVE (NEGATIVE); LEUKOCYTE ESTERASE ,URINE 3+ (NEGATIVE); NITRITES,URINE NEGATIVE (NEGATIVE); PROTEIN,URINE 2+ (NEGATIVE); UROBILINOGEN,URINE NORMAL (NORMAL)
[2020-11-28] MEDS ORDERED: DECADRON INJ ONE (10:33)
--- NOTE | 2020-11-28 10:35 | RAD ---
HISTORYAMSSTUDYCHEST, 1 VIEWCOMPARISONPortable chest September 13, 2019.FINDINGSThe trachea is midline. The cardiac silhouette is mildly enlarged but stable.. There are sternotomy wires and surgical clips from CABG surgery. The lungs are clear without focal infiltrate or effusion. The bony thorax is unremarkable.IMPRESSIONStable mild cardiomegaly and postsurgical changes but no acute cardiopulmonary processes. No signs of CHF no significant change from September 13, 2019..Electronically signed by: RONDA DUBON (Nov 28, 2020 10:33:55)
[2020-11-28 10:36] LABS: AMMONIA < 10 umol/L (11-32)
[2020-11-28 10:41] LABS: APPEARANCE,URINE HAZY (CLEAR); COLOR,URINE YELLOW (YELLOW)
[2020-11-28 10:42] LABS: BACTERIA,URINE 2+ /HPF (NEGATIVE); MUCUS,URINE FEW /HPF (NEGATIVE); SQUAMOUS EPITHELIAL CELL,UR RARE /HPF (NEGATIVE)
[2020-11-28] MEDS: DECADRON INJ IVP ONE ×2 (10:42→10:43)
[2020-11-28] MEDS: DEXTROSE 10% 1,000 ML IV SCH (10:43)
--- NOTE | 2020-11-28 10:45 | CT ---
HISTORYAMS hypertension. Diabetes. TIA.STUDYBRAIN W/O CONCOMPARISONNoneTECHNIQUEMultiple CT axial images of the head were obtained without IV contrast. Coronal and sagittal images were reconstructed. Dose reduction techniques included Automated Exposure Control (AEC) and adjustment of mA and kV.FINDINGSAge-related findings include central and cortical atrophy with areas of low density in the periventricular white matter compatible with micro-ischemic changes.Two nodular densities are present in the right lateral ventricle ependyma. One measures 11 mm and another measures 7 mm. This could be due to metastatic disease or short matter heterotopia. Recommend MRI of the brain without and with contrast for further evaluation.No cortical infarct or hemorrhage. No midline shift.Cerebellar tonsils are at an appropriate level.No fluid in the sinuses or mucosal thickening to suggest sinusitis. There is no mastoid effusion.Dysconjugate gaze.IMPRESSION1. Right cerebral ependymal nodules; differential diagnosis includes metastatic disease or short matter heterotopia2. Recommend MRI brain without and with contrast3. No acute infarct or hemorrhageElectronically signed by: Sincere Danielson (Nov 28, 2020 10:43:39)
[2020-11-28 10:50] LABS: ALANINE AMINOTRANSFERASE 10 Units/L (12-78); ALKALINE PHOSPHATASE 63 Units/L (46-116); ASPARTATE AMINO TRANSFERASE 17 Units/L (15-37); BLOOD UREA NITROGEN 21 mg/dL (7-18); CALCIUM 8.7 mg/dL (8.5-10.1); CARBON DIOXIDE 26.8 mmol/L (21-32); CHLORIDE 102 mmol/L (98-107); CKMB % 1.7 % (<4); COR CA(FOR HYPOALB) 9.5 mg/dL (8.5-10.1); COR NA(FOR HYPERGLY) 139 mmol/L (136-145); CREATINE KINASE 122 Units/L (26-192); CREATINE KINASE MB 2.1 ng/mL (0-4.0); CREATININE 2.21 mg/dL (0.55-1.02); SODIUM 138 mmol/L (136-145); TOTAL PROTEIN 6.2 g/dL (6.4-8.2); TROPONIN I < 0.02 ng/mL (0-1.5); eGFR NON BLACK RACES 23 (>60)
[2020-11-28] MEDS ORDERED: POTASSIUM CHLORIDE INJ 20 MEQ VIAL IV ONE (11:54)
[2020-11-28] MEDS ORDERED: LEVAQUIN PREMIX IV 750 MG 750 MG/150 ML BAG IV ONE (12:48)
[2020-11-28] MEDS: NS 1000 ML 1,000 ML IV SCH ×2 (14:03→21:38)
[2020-11-28] MEDS: K-RIDER 10 MEQ/NS 100 ML 10 MEQ/100 ML BAG IV SCH ×2 (15:14→21:09)
[2020-11-28 16:34] LABS: CREATINE KINASE 93 Units/L (26-192); CREATINE KINASE MB 1.9 ng/mL (0-4.0); TROPONIN I < 0.02 ng/mL (0-1.5)
[2020-11-28 22:35] LABS: CKMB % 2.2 % (<4); CREATINE KINASE 87 Units/L (26-192); CREATINE KINASE MB 1.9 ng/mL (0-4.0); TROPONIN I < 0.02 ng/mL (0-1.5)
[2020-11-29] MEDS: NS 1000 ML 1,000 ML IV SCH ×3 (05:28→20:47)
[2020-11-29] MEDS: DEXTROSE 10% 1,000 ML IV SCH (05:28)
[2020-11-29 06:36] LABS: BASOPHILS % (AUTO) 0.2 % (0.2-1.0); EOSINOPHILS % (AUTO) 0.1 % (0.9-2.9); HEMATOCRIT 31.5 % (36.0-47.0); HEMOGLOBIN 10.6 g/dL (12.0-16.0); LYMPHOCYTES # (AUTO) 1.3 X10^3/uL (1.3-2.9); LYMPHOCYTES % (AUTO) 17.2 % (21.0-51.0); MEAN CORPUSCULAR HEMOGLOBIN 27.1 pg (27.0-34.0); MEAN CORPUSCULAR HGB CONC 33.5 g/dL (33.0-35.0); MEAN CORPUSCULAR VOLUME 80.7 fL (80.0-100.0); MEAN PLATELET VOLUME 7.2 fL (7.4-11.0); MONOCYTES # (AUTO) 0.5 x10^3/uL (0.3-0.8); MONOCYTES % (AUTO) 6.2 % (0.0-13.0); NEUTROPHILS # (AUTO) 5.7 x10^3/uL (2.2-4.8); NEUTROPHILS % (AUTO) 76.3 % (42.0-75.0); PLATELET COUNT 334 X10^3/uL (150.0-450.0); RED CELL DISTRIBUTION WIDTH 17.9 % (11.6-16.5); WHITE BLOOD COUNT 7.4 X10^3/uL (3.6-10.0)
[2020-11-29 06:46] LABS: ALBUMIN 2.8 g/dL (3.4-5.0); CALCIUM 8.6 mg/dL (8.5-10.1); CARBON DIOXIDE 26.3 mmol/L (21-32); COR CA(FOR HYPOALB) 9.6 mg/dL (8.5-10.1); CREATININE 2.03 mg/dL (0.55-1.02)
[2020-11-29] MEDS ORDERED: HumuLIN R SC PRN (09:44)
[2020-11-29] MEDS: NORVASC TAB 10 MG PO SCH (09:53)
[2020-11-29] MEDS: LYRICA CAP 150 mg PO SCH ×2 (09:54→20:47)
[2020-11-29] MEDS: PLAVIX PO SCH (09:54)
[2020-11-29] MEDS: MAGNESIUM SULFATE 1 GRAM/100 mL PREMIX 1 GM/100 ML BAG IV PRN ×2 (11:38→13:37)
--- NOTE | 2020-11-29 12:20 | PCM.PROG ---
Progress Note Progress Note for Day of Date of Exam: 11/29/20 Subjective Subjective: Pt is a 75 year old female past medical history of HTN, DMT2, admitted for altered mental status, hypoglycemia, cystitis, acute renal insufficiency. This morning patient reports feeling better. She does admit the possibility of taking more insulin that she should have the night prior to admi ssion. She also states she got a benzodiazepine from her friend that may explain toxicology screen. She usually takes between 10 to 16 units of Lantus insulin at night. Labs/imaging: Wbc 7.4, Hgb 10.6, Platelet 334, Na 143, K 2.6, Creatinine 2.03, Glucose 193, Urine/Blood culture pending, CT head: 1.Right cerebral ependymal nodules; differential diagnosis includes metastatic disease or short matter heterotopia 2.Recommend MRI brain without and with contrast. 3.No acute infarct or hemorrhage. Will stop IVF D10% and change to NS@125ml/h. Continue Levaquin for urinary tract infection. Patient's confusion appears to be resolved. Keep on sliding scale insulin to determine daily requirement. Concern over CT head revealing nodules, recommend MRI for further evaluation, ordered for tomorrow. Hypokalemia on labs, replete per protocol. Otherwise continue current treatment plan, monitor and follow up labs/imaging in the morning. Past Medical Family Social History Past Med/Fam/Surg Hx: No changes since H&P Allergies: Allergies shellfish derived Allergy (Verified 09/13/19 10:56) Review of Systems ROS: No change since H&P Vital Signs and I&O's Vital Signs: Temperature 98.2 F Pulse Rate [Apical] 68 Pulse Rate 46 Respiratory Rate 18 Blood Pressure [Left Arm] 160/74 Blood Pressure [Right Arm] 153/69 Blood Pressure 97/55 O2 Sat by Pulse Oximetry 100 Intake and Output: Intake & Output 11/26/20 11/27/20 11/28/20 11/29/20 23:59 23:59 23:59 23:59 Intake Total 500 / 500 608 / 608 Output Total 1000 / 1000 300 / 300 Balance -500 / -500 308 / 308 Physical Exam Oriented: Normal Eyes: Normal Ear: Normal Nose: Normal Respiratory: Normal Cardiovascular: Normal : Normal Auscultation: Bowel Sounds: Normal Tenderness: Normal Skin: Normal Musculoskeletal: Normal Psychiatric: Normal Mood Description: Calm Speech Pattern: Clear and Appropriate Laboratory and Diagnostics Result Diagrams: 11/30/20 06:25 11/30/20 06:25 Labs: 11/28/20 10:05 Urine,Catheterized Urine Culture - Preliminary Laboratory WBC 7.4 X10^3/uL (3.6-10.0) 11/29/20 06:15 RBC 3.90 X10^6/uL (3.5-5.4) 11/29/20 06:15 Hgb 10.6 g/dL (12.0-16.0) L 11/29/20 06:15 Hct 31.5 % (36.0-47.0) L 11/29/20 06:15 MCV 80.7 fL (80.0-100.0) 11/29/20 06:15 MCH 27.1 pg (27.0-34.0) 11/29/20 06:15 MCHC 33.5 g/dL (33.0-35.0) 11/29/20 06:15 RDW 17.9 % (11.6-16.5) H 11/29/20 06:15 Plt Count 334 X10^3/uL (150.0-450.0) 11/29/20 06:15 MPV 7.2 fL (7.4-11.0) L 11/29/20 06:15 Neut % (Auto) 76.3 % (42.0-75.0) H 11/29/20 06:15 Lymph % (Auto) 17.2 % (21.0-51.0) L 11/29/20 06:15 [place] % (Auto) 6.2 % (0.0-13.0) 11/29/20 06:15 Eos % (Auto) 0.1 % (0.9-2.9) L 11/29/20 06:15 Baso % (Auto) 0.2 % (0.2-1.0) 11/29/20 06:15 Neut # (Auto) 5.7 x10^3/uL (2.2-4.8) H 11/29/20 06:15 Lymph # (Auto) 1.3 X10^3/uL (1.3-2.9) 11/29/20 06:15 [place] # (Auto) 0.5 x10^3/uL (0.3-0.8) 11/29/20 06:15 Eos # (Auto) 0.0 x10^3/uL (0.0-0.2) 11/29/20 06:15 Baso # (Auto) 0.0 X10^3/uL (0.0-0.1) 11/29/20 06:15 Absolute Nucleated RBC 0.0 /100WBC 11/29/20 06:15 Sodium 141 mmol/L (136-145) 11/29/20 06:15 Corrected Sodium 143 mmol/L (136-145) 11/29/20 06:15 Potassium 2.6 mmol/L (3.5-5.1) L* 11/29/20 06:15 Chloride 105 mmol/L (98-107) 11/29/20 06:15 Carbon Dioxide 26.3 mmol/L (21-32) 11/29/20 06:15 BUN 19 mg/dL (7-18) H 11/29/20 06:15 Creatinine 2.03 mg/dL (0.55-1.02) H 11/29/20 06:15 Est GFR (MDRD) Af Amer 31 (>60) L 11/29/20 06:15 Est GFR (MDRD) Non-Af 25 (>60) L 11/29/20 06:15 Glucose 193 mg/dL (65-99) H 11/29/20 06:15 POC Glucose (mg/dL) 130 mg/dL (65-99) H 11/29/20 11:39 Calcium 8.6 mg/dL (8.5-10.1) 11/29/20 06:15 Corrected Calcium 9.6 mg/dL (8.5-10.1) 11/29/20 06:15 Magnesium 1.7 mg/dL (1.7-2.9) 11/29/20 06:15 Total Bilirubin 0.20 mg/dL (0.2-1.0) 11/29/20 06:15 AST 9 Units/L (15-37) L 11/29/20 06:15 ALT 15 Units/L (12-78) 11/29/20 06:15 Alkaline Phosphatase 60 Units/L (46-116) 11/29/20 06:15 Ammonia < 10 umol/L (11-32) L 11/28/20 10:05 Creatine Kinase 87 Units/L (26-192) 11/28/20 22:00 CK-MB (CK-2) 1.9 ng/mL (0-4.0) 11/28/20 22:00 CK/CKMB % Calc 2.2 % (<4) 11/28/20 22:00 Troponin I < 0.02 ng/mL (0-1.5) 11/28/20 22:00 Total Protein 6.0 g/dL (6.4-8.2) L 11/29/20 06:15 Albumin 2.8 g/dL (3.4-5.0) L 11/29/20 06:15 Globulin 3.2 g/dL (2.5-4.5) 11/29/20 06:15 Albumin/Globulin Ratio 0.9 Ratio (1.1-2.1) L 11/29/20 06:15 Specimen Type Catherized urine 11/28/20 10:05 Urine Color Yellow (YELLOW) 11/28/20 10:05 Urine Appearance Hazy (CLEAR) 11/28/20 10:05 Urine pH 6.0 (5.0 - 8.0) 11/28/20 10:05 Ur Specific [place] 1.010 (1.000-1.030) 11/28/20 10:05 Urine Protein 2+ (NEGATIVE) 11/28/20 10:05 Urine Glucose (UA) Negative (NEGATIVE) 11/28/20 10:05 Urine Ketones Negative (NEGATIVE) 11/28/20 10:05 Urine Occult Blood 2+ (NEGATIVE) 11/28/20 10:05 Urine Nitrite Negative (NEGATIVE) 11/28/20 10:05 Urine Bilirubin Negative (NEGATIVE) 11/28/20 10:05 Urine Urobilinogen Normal (NORMAL) 11/28/20 10:05 Ur Leukocyte Esterase 3+ (NEGATIVE) 11/28/20 10:05 Urine RBC 3-5 /HPF (0-3) A 11/28/20 10:05 Urine WBC Tntc /HPF (0-5) A 11/28/20 10:05 Ur Squamous Epith Cells Rare /HPF (NEGATIVE) 11/28/20 10:05 Urine Bacteria 2+ /HPF (NEGATIVE) 11/28/20 10:05 Urine Mucus Few /HPF (NEGATIVE) 11/28/20 10:05 Ur Culture Indicated? Yes/culture set up 11/28/20 10:05 Urine Opiates Screen Negative (NEG=<300) 11/28/20 10:05 Urine Methadone Screen Negative (NEG=<300) 11/28/20 10:05 Ur Barbiturates Screen Negative (NEG=<200) 11/28/20 10:05 Ur Phencyclidine Scrn Negative (NEG=<25) 11/28/20 10:05 Ur Amphetamines Screen Negative (NEG=<1000) 11/28/20 10:05 U Benzodiazepines Scrn Positive (NEG=<200) A 11/28/20 10:05 Urine Cocaine Screen Negative (NEG=<300) 11/28/20 10:05 U Marijuana (THC) Screen Negative (NEG=<50) 11/28/20 10:05 Influenza Type A Ag Negative-presumptive (NEGATIVE) 11/28/20 11:10 Influenza Type B Ag Negative-presumptive (NEGATIVE) 11/28/20 11:10 SARS CoV-2 RNA Rapid TERRI Negative (NEGATIVE) 11/28/20 11:10 Plan (1) Mental status alteration: Status: Acute Qualifiers: Altered mental status type: somnolence Qualified Code(s): R40.0 - Somnolence Plan: Continue to monitor MRI ordered (2) Hypoglycemia: Status: Acute Plan: SSI (3) Cystitis: Status: Acute Plan: Levaquin (4) Hypokalemia: Status: Acute Plan: Replete per protocol (5) Acute renal insufficiency: Status: Acute Plan: IVF
--- NOTE | 2020-11-29 12:25 | DR.H&P ---
H&P History & Physical for Day of: H&P Date: 11/28/20 Chief Complaint Chief Complaint: Altered mental status Hypoglycemia Hypothermia Allergies Allergies Allergy/AdvReac Type Severity Reaction Status Date / Time shellfish derived Allergy Verified 09/13/19 10:56 History of Present Illness History of Present Illness: Pt is a 75 year old female past medical history of HTN, DMT2, admitted after being found by her son this morning unresponsive. When EMS arrived FSBG was determined to be 25. She was given amp of glucose and taken to ER for further evaluation. 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 3.No acute infarct or hemorrhage. CXR: 1.Stable mild cardiomegaly and postsurgical changes but no acute cardiopulmonary processes. No signs of CHF no significant change from September 13, 2019. Pt was started on IVF D10% and Levaquin. Her mental status has significantly improved but she still has some confusion. Will keep on sliding scale insulin to determine daily requirement she would need to continue. Restart home medications. Concern over CT head revealing nodules, recommend MRI for further evaluation, will order. Patient's core temperature low, keep on bear hugger. Replete electrolyte abnormalities. Continue to monitor and follow up labs/imaging in the morning. Past Medical History Past Medical History: Angina, Arthritis, Coronary Artery Disease, Diabetes, Dyslipidemia, GERD, Hypertension and MA Additional Medical History: Cataracts, Glaucoma, Back Pain, Previous Blood Transfusion Past Surgical History Surgical History: CABG/Valve Surgery, Joint Replacement and Ortho Surgery Additional Surgical History: Quintuple Bypass-1993, Triple Bypass-2009 Family History Family Medical History: Diabetes Mellitus, Cancer, MA, Coronary Artery Disease, Heart Failure and Hypertension Social History Does patient currently use any type of tobacco product: No Have you used tobacco products in the last 12 months: No Type of Tobacco Use: None Does any household member use tobacco: No Alcohol Use: None Drug Use: None Medications Home Medications: shellfish derived Allergy (Verified 09/13/19 10:56) CONTINUE taking the following medications Lantus Solostar U-100 Insulin 30 units SUBCUT HS 11/28/20 [History] Labs Result Diagrams: 11/30/20 06:25 11/30/20 06:25 Labs: 11/28/20 10:05 Urine,Catheterized Urine Culture - Preliminary Laboratory WBC 7.4 X10^3/uL (3.6-10.0) 11/29/20 06:15 RBC 3.90 X10^6/uL (3.5-5.4) 11/29/20 06:15 Hgb 10.6 g/dL (12.0-16.0) L 11/29/20 06:15 Hct 31.5 % (36.0-47.0) L 11/29/20 06:15 MCV 80.7 fL (80.0-100.0) 11/29/20 06:15 MCH 27.1 pg (27.0-34.0) 11/29/20 06:15 MCHC 33.5 g/dL (33.0-35.0) 11/29/20 06:15 RDW 17.9 % (11.6-16.5) H 11/29/20 06:15 Plt Count 334 X10^3/uL (150.0-450.0) 11/29/20 06:15 MPV 7.2 fL (7.4-11.0) L 11/29/20 06:15 Neut % (Auto) 76.3 % (42.0-75.0) H 11/29/20 06:15 Lymph % (Auto) 17.2 % (21.0-51.0) L 11/29/20 06:15 [place] % (Auto) 6.2 % (0.0-13.0) 11/29/20 06:15 Eos % (Auto) 0.1 % (0.9-2.9) L 11/29/20 06:15 Baso % (Auto) 0.2 % (0.2-1.0) 11/29/20 06:15 Neut # (Auto) 5.7 x10^3/uL (2.2-4.8) H 11/29/20 06:15 Lymph # (Auto) 1.3 X10^3/uL (1.3-2.9) 11/29/20 06:15 [place] # (Auto) 0.5 x10^3/uL (0.3-0.8) 11/29/20 06:15 Eos # (Auto) 0.0 x10^3/uL (0.0-0.2) 11/29/20 06:15 Baso # (Auto) 0.0 X10^3/uL (0.0-0.1) 11/29/20 06:15 Absolute Nucleated RBC 0.0 /100WBC 11/29/20 06:15 Sodium 141 mmol/L (136-145) 11/29/20 06:15 Corrected Sodium 143 mmol/L (136-145) 11/29/20 06:15 Potassium 2.6 mmol/L (3.5-5.1) L* 11/29/20 06:15 Chloride 105 mmol/L (98-107) 11/29/20 06:15 Carbon Dioxide 26.3 mmol/L (21-32) 11/29/20 06:15 BUN 19 mg/dL (7-18) H 11/29/20 06:15 Creatinine 2.03 mg/dL (0.55-1.02) H 11/29/20 06:15 Est GFR (MDRD) Af Amer 31 (>60) L 11/29/20 06:15 Est GFR (MDRD) Non-Af 25 (>60) L 11/29/20 06:15 Glucose 193 mg/dL (65-99) H 11/29/20 06:15 POC Glucose (mg/dL) 130 mg/dL (65-99) H 11/29/20 11:39 Calcium 8.6 mg/dL (8.5-10.1) 11/29/20 06:15 Corrected Calcium 9.6 mg/dL (8.5-10.1) 11/29/20 06:15 Magnesium 1.7 mg/dL (1.7-2.9) 11/29/20 06:15 Total Bilirubin 0.20 mg/dL (0.2-1.0) 11/29/20 06:15 AST 9 Units/L (15-37) L 11/29/20 06:15 ALT 15 Units/L (12-78) 11/29/20 06:15 Alkaline Phosphatase 60 Units/L (46-116) 11/29/20 06:15 Ammonia < 10 umol/L (11-32) L 11/28/20 10:05 Creatine Kinase 87 Units/L (26-192) 11/28/20 22:00 CK-MB (CK-2) 1.9 ng/mL (0-4.0) 11/28/20 22:00 CK/CKMB % Calc 2.2 % (<4) 11/28/20 22:00 Troponin I < 0.02 ng/mL (0-1.5) 11/28/20 22:00 Total Protein 6.0 g/dL (6.4-8.2) L 11/29/20 06:15 Albumin 2.8 g/dL (3.4-5.0) L 11/29/20 06:15 Globulin 3.2 g/dL (2.5-4.5) 11/29/20 06:15 Albumin/Globulin Ratio 0.9 Ratio (1.1-2.1) L 11/29/20 06:15 Specimen Type Catherized urine 11/28/20 10:05 Urine Color Yellow (YELLOW) 11/28/20 10:05 Urine Appearance Hazy (CLEAR) 11/28/20 10:05 Urine pH 6.0 (5.0 - 8.0) 11/28/20 10:05 Ur Specific [place] 1.010 (1.000-1.030) 11/28/20 10:05 Urine Protein 2+ (NEGATIVE) 11/28/20 10:05 Urine Glucose (UA) Negative (NEGATIVE) 11/28/20 10:05 Urine Ketones Negative (NEGATIVE) 11/28/20 10:05 Urine Occult Blood 2+ (NEGATIVE) 11/28/20 10:05 Urine Nitrite Negative (NEGATIVE) 11/28/20 10:05 Urine Bilirubin Negative (NEGATIVE) 11/28/20 10:05 Urine Urobilinogen Normal (NORMAL) 11/28/20 10:05 Ur Leukocyte Esterase 3+ (NEGATIVE) 11/28/20 10:05 Urine RBC 3-5 /HPF (0-3) A 11/28/20 10:05 Urine WBC Tntc /HPF (0-5) A 11/28/20 10:05 Ur Squamous Epith Cells Rare /HPF (NEGATIVE) 11/28/20 10:05 Urine Bacteria 2+ /HPF (NEGATIVE) 11/28/20 10:05 Urine Mucus Few /HPF (NEGATIVE) 11/28/20 10:05 Ur Culture Indicated? Yes/culture set up 11/28/20 10:05 Urine Opiates Screen Negative (NEG=<300) 11/28/20 10:05 Urine Methadone Screen Negative (NEG=<300) 11/28/20 10:05 Ur Barbiturates Screen Negative (NEG=<200) 11/28/20 10:05 Ur Phencyclidine Scrn Negative (NEG=<25) 11/28/20 10:05 Ur Amphetamines Screen Negative (NEG=<1000) 11/28/20 10:05 U Benzodiazepines Scrn Positive (NEG=<200) A 11/28/20 10:05 Urine Cocaine Screen Negative (NEG=<300) 11/28/20 10:05 U Marijuana (THC) Screen Negative (NEG=<50) 11/28/20 10:05 Influenza Type A Ag Negative-presumptive (NEGATIVE) 11/28/20 11:10 Influenza Type B Ag Negative-presumptive (NEGATIVE) 11/28/20 11:10 SARS CoV-2 RNA Rapid TERRI Negative (NEGATIVE) 11/28/20 11:10 Review of Systems Constitutional: Weakness Eyes: No Symptoms Reported ENT: No Symptoms Reported Respiratory: No Symptoms Reported Cardiovascular: No Symptoms Reported Gastrointestinal: No Symptoms Reported Genitourinary: No Symptoms Reported Musculoskeletal: Back Pain Skin: No Symptoms Reported Neurological: Confusion Physical Exam Vital Signs: Temperature 98.2 F Pulse Rate [Apical] 68 Pulse Rate 46 Respiratory Rate 18 Blood Pressure [Left Arm] 160/74 Blood Pressure [Right Arm] 153/69 Blood Pressure 97/55 O2 Sat by Pulse Oximetry 100 Oriented: Other (AOx2) Eyes: Normal Ear: Normal Nose: Normal Throat: Normal Respiratory: Clear Throughout Cardiovascular: Normal : Normal Auscultation: Bowel Sounds: Normal Palpation: Normal Tenderness: Normal Skin: Normal Musculoskeletal: Normal Psychiatric: Normal Mood Description: Calm and Appropriate Affect: Normal Speech Pattern: Clear and Appropriate Assessment/Plan (1) Mental status alteration: Qualifiers: Altered mental status type: somnolence Qualified Code(s): R40.0 - Somnolence Status: Acute Plan: Likely due to combination of hypoglycemia and infection Continue to monitor, order MRI due to CT findings (2) Hypoglycemia: Status: Acute Plan: SSI (3) Cystitis: Status: Acute Plan: Antibiotics:Levaquin Urine culture pending Review H&P Reviewed: Yes Patient was examined?: Yes
[2020-11-29] MEDS: NORCO 7.5/325 MG TAB PO PRN (13:37)
[2020-11-29] MEDS: MICRO K EXTEN CAP 10 MEQ PO SCH (20:46)
[2020-11-29] MEDS: CRESTOR TAB 10 MG PO SCH (20:47)
[2020-11-30] MEDS: NORCO 7.5/325 MG TAB PO PRN ×2 (00:17→18:09)
[2020-11-30] MEDS: NS 1000 ML 1,000 ML IV SCH ×3 (04:17→20:19)
[2020-11-30 06:43] LABS: BASOPHILS % (AUTO) 0.2 % (0.2-1.0); EOSINOPHILS # (AUTO) 0.2 x10^3/uL (0.0-0.2); EOSINOPHILS % (AUTO) 2.5 % (0.9-2.9); HEMATOCRIT 30.1 % (36.0-47.0); LYMPHOCYTES # (AUTO) 2.6 X10^3/uL (1.3-2.9); LYMPHOCYTES % (AUTO) 39.7 % (21.0-51.0); MEAN CORPUSCULAR HGB CONC 33.2 g/dL (33.0-35.0); MEAN CORPUSCULAR VOLUME 81.1 fL (80.0-100.0); MEAN PLATELET VOLUME 6.9 fL (7.4-11.0); MONOCYTES # (AUTO) 0.5 x10^3/uL (0.3-0.8); MONOCYTES % (AUTO) 7.9 % (0.0-13.0); NEUTROPHILS # (AUTO) 3.2 x10^3/uL (2.2-4.8); NEUTROPHILS % (AUTO) 49.7 % (42.0-75.0); PLATELET COUNT 348 X10^3/uL (150.0-450.0); RED BLOOD COUNT 3.72 X10^6/uL (3.5-5.4); RED CELL DISTRIBUTION WIDTH 17.8 % (11.6-16.5); WHITE BLOOD COUNT 6.4 X10^3/uL (3.6-10.0)
[2020-11-30 06:57] LABS: ALANINE AMINOTRANSFERASE 12 Units/L (12-78); ALBUMIN 2.6 g/dL (3.4-5.0); ALKALINE PHOSPHATASE 56 Units/L (46-116); ASPARTATE AMINO TRANSFERASE 10 Units/L (15-37); BLOOD UREA NITROGEN 13 mg/dL (7-18); CALCIUM 8.2 mg/dL (8.5-10.1); CARBON DIOXIDE 27.5 mmol/L (21-32); CHLORIDE 111 mmol/L (98-107); COR CA(FOR HYPOALB) 9.3 mg/dL (8.5-10.1); CREATININE 1.55 mg/dL (0.55-1.02); MAGNESIUM 1.8 mg/dL (1.7-2.9); SODIUM 147 mmol/L (136-145); TOTAL PROTEIN 5.5 g/dL (6.4-8.2); eGFR NON BLACK RACES 35 (>60)
[2020-11-30] MEDS: LOPRESSOR TAB 50 MG PO SCH (08:52)
[2020-11-30] MEDS: PLAVIX PO SCH (08:52)
[2020-11-30] MEDS: MICRO K EXTEN CAP 10 MEQ PO SCH ×2 (08:52→20:18)
[2020-11-30] MEDS: NORVASC TAB 10 MG PO SCH (08:52)
[2020-11-30] MEDS: LYRICA CAP 150 mg PO SCH ×2 (08:52→20:19)
[2020-11-30] MEDS: LEVAQUIN PREMIX IV 500 MG 500 MG/100 ML BAG IV SCH (08:55)
[2020-11-30] MEDS ORDERED: POTASSIUM CHLORIDE LIQ 20 MEQ UDC PO PRN (09:06)
[2020-11-30] MEDS ORDERED: KLOR-CON PO PRN (09:06)
[2020-11-30] MEDS ORDERED: MICRO K EXTEN CAP 10 MEQ PO PRN (09:06)
[2020-11-30] MEDS ORDERED: POTASSIUM CHL 60 MEQ/NS 0.45% 500 ML IV PRN (09:06)
[2020-11-30] MEDS ORDERED: POTASSIUM CHL 40 MEQ/NS 0.45% 500 ML IV PRN (09:06)
[2020-11-30] MEDS ORDERED: K-RIDER 10 MEQ/NS 100 ML 10 MEQ/100 ML BAG IV PRN (09:06)
[2020-11-30] MEDS: K-DUR TAB 20 MEQ PO PRN ×2 (11:04→13:55)
--- NOTE | 2020-11-30 11:42 | PCM.PROG ---
Progress Note Progress Note for Day of Date of Exam: 11/30/20 Subjective Subjective: Pt is a 75 year old female past medical history of HTN, DMT2, admitted for altered mental status, hypoglycemia, cystitis, acute renal insufficiency. This morning patient is resting comfortably in bed. No acute events overnight. Labs/imaging: Wbc 6.4, Hgb 10, Platelet 348, Na 147, K 2.2, Creatinine 1.55, Glucose 94, Blood culture negative, Urine culture positive pseudomonas aur. susceptible to Levaquin, CT head: 1.Right cerebral ependymal nodules; differential diagnosis includes metastatic disease or short matter heterotopia 2.Recommend MRI brain without and with contrast. 3.No acute infarct or hemorrhage. Treatment course includes IVF NS@125ml/h. Renal function improving. Continue Levaquin for urinary tract infection. Appears patient did not need sliding scale insulin yesterday. Discussed with patient why she is not on any oral hypoglycemic medications and was told many years ago that it would effect her kidneys. Keep on sliding scale insulin and consider starting on metformin once renal function returns back to baseline. Concern over CT head revealing nodules, recommend MRI for further evaluation, ordered for tomorrow. Hypokalemia on labs, replete per protocol, adjust home supplement dose. Otherwise continue current treatment plan, monitor and follow up labs/imaging in the morning. Past Medical Family Social History Past Med/Fam/Surg Hx: No changes since H&P Allergies: Allergies shellfish derived Allergy (Verified 09/13/19 10:56) Review of Systems ROS: No change since H&P Vital Signs and I&O's Vital Signs: Temperature 97.5 F Pulse Rate [Apical] 66 Pulse Rate 46 Respiratory Rate 20 Blood Pressure [Left Arm] 152/74 Blood Pressure [Right Arm] 150/62 Blood Pressure 97/55 O2 Sat by Pulse Oximetry 100 Intake and Output: Intake & Output 11/27/20 11/28/20 11/29/20 11/30/20 23:59 23:59 23:59 23:59 Intake Total 500 / 500 2366 / 2366 522 / 522 Output Total 1000 / 1000 1500 / 1500 Balance -500 / -500 866 / 866 522 / 522 Physical Exam Oriented: Normal Eyes: Normal Ear: Normal Nose: Normal Throat: Normal Respiratory: Normal Cardiovascular: Normal : Normal Auscultation: Bowel Sounds: Normal Tenderness: Normal Skin: Normal Musculoskeletal: Normal Psychiatric: Normal Mood Description: Calm Affect: Normal Speech Pattern: Clear and Appropriate Laboratory and Diagnostics Result Diagrams: 11/30/20 06:25 11/30/20 06:25 Labs: 11/28/20 10:10 Blood Blood Culture - Preliminary 11/28/20 10:05 Blood Blood Culture - Preliminary 11/28/20 10:05 Urine,Catheterized Urine Culture - Final Pseudomonas Aeruginosa Laboratory WBC 6.4 X10^3/uL (3.6-10.0) 11/30/20 06:25 RBC 3.72 X10^6/uL (3.5-5.4) 11/30/20 06:25 Hgb 10.0 g/dL (12.0-16.0) L 11/30/20 06:25 Hct 30.1 % (36.0-47.0) L 11/30/20 06:25 MCV 81.1 fL (80.0-100.0) 11/30/20 06:25 MCH 27.0 pg (27.0-34.0) 11/30/20 06:25 MCHC 33.2 g/dL (33.0-35.0) 11/30/20 06:25 RDW 17.8 % (11.6-16.5) H 11/30/20 06:25 Plt Count 348 X10^3/uL (150.0-450.0) 11/30/20 06:25 MPV 6.9 fL (7.4-11.0) L 11/30/20 06:25 Neut % (Auto) 49.7 % (42.0-75.0) 11/30/20 06:25 Lymph % (Auto) 39.7 % (21.0-51.0) 11/30/20 06:25 [place] % (Auto) 7.9 % (0.0-13.0) 11/30/20 06:25 Eos % (Auto) 2.5 % (0.9-2.9) 11/30/20 06:25 Baso % (Auto) 0.2 % (0.2-1.0) 11/30/20 06:25 Neut # (Auto) 3.2 x10^3/uL (2.2-4.8) 11/30/20 06:25 Lymph # (Auto) 2.6 X10^3/uL (1.3-2.9) 11/30/20 06:25 [place] # (Auto) 0.5 x10^3/uL (0.3-0.8) 11/30/20 06:25 Eos # (Auto) 0.2 x10^3/uL (0.0-0.2) 11/30/20 06:25 Baso # (Auto) 0.0 X10^3/uL (0.0-0.1) 11/30/20 06:25 Absolute Nucleated RBC 0.1 /100WBC 11/30/20 06:25 Sodium 147 mmol/L (136-145) H 11/30/20 06:25 Corrected Sodium TNP 11/30/20 06:25 Potassium 2.2 mmol/L (3.5-5.1) L* 11/30/20 06:25 Chloride 111 mmol/L (98-107) H 11/30/20 06:25 Carbon Dioxide 27.5 mmol/L (21-32) 11/30/20 06:25 BUN 13 mg/dL (7-18) 11/30/20 06:25 Creatinine 1.55 mg/dL (0.55-1.02) H 11/30/20 06:25 Est GFR (MDRD) Af Amer 42 (>60) L 11/30/20 06:25 Est GFR (MDRD) Non-Af 35 (>60) L 11/30/20 06:25 Glucose 94 mg/dL (65-99) 11/30/20 06:25 POC Glucose (mg/dL) 167 mg/dL (65-99) H 11/30/20 11:05 Calcium 8.2 mg/dL (8.5-10.1) L 11/30/20 06:25 Corrected Calcium 9.3 mg/dL (8.5-10.1) 11/30/20 06:25 Magnesium 1.8 mg/dL (1.7-2.9) 11/30/20 06:25 Total Bilirubin 0.20 mg/dL (0.2-1.0) 11/30/20 06:25 AST 10 Units/L (15-37) L 11/30/20 06:25 ALT 12 Units/L (12-78) 11/30/20 06:25 Alkaline Phosphatase 56 Units/L (46-116) 11/30/20 06:25 Ammonia < 10 umol/L (11-32) L 11/28/20 10:05 Creatine Kinase 87 Units/L (26-192) 11/28/20 22:00 CK-MB (CK-2) 1.9 ng/mL (0-4.0) 11/28/20 22:00 CK/CKMB % Calc 2.2 % (<4) 11/28/20 22:00 Troponin I < 0.02 ng/mL (0-1.5) 11/28/20 22:00 Total Protein 5.5 g/dL (6.4-8.2) L 11/30/20 06:25 Albumin 2.6 g/dL (3.4-5.0) L 11/30/20 06:25 Globulin 2.9 g/dL (2.5-4.5) 11/30/20 06:25 Albumin/Globulin Ratio 0.9 Ratio (1.1-2.1) L 11/30/20 06:25 Specimen Type Catherized urine 11/28/20 10:05 Urine Color Yellow (YELLOW) 11/28/20 10:05 Urine Appearance Hazy (CLEAR) 11/28/20 10:05 Urine pH 6.0 (5.0 - 8.0) 11/28/20 10:05 Ur Specific [place] 1.010 (1.000-1.030) 11/28/20 10:05 Urine Protein 2+ (NEGATIVE) 11/28/20 10:05 Urine Glucose (UA) Negative (NEGATIVE) 11/28/20 10:05 Urine Ketones Negative (NEGATIVE) 11/28/20 10:05 Urine Occult Blood 2+ (NEGATIVE) 11/28/20 10:05 Urine Nitrite Negative (NEGATIVE) 11/28/20 10:05 Urine Bilirubin Negative (NEGATIVE) 11/28/20 10:05 Urine Urobilinogen Normal (NORMAL) 11/28/20 10:05 Ur Leukocyte Esterase 3+ (NEGATIVE) 11/28/20 10:05 Urine RBC 3-5 /HPF (0-3) A 11/28/20 10:05 Urine WBC Tntc /HPF (0-5) A 11/28/20 10:05 Ur Squamous Epith Cells Rare /HPF (NEGATIVE) 11/28/20 10:05 Urine Bacteria 2+ /HPF (NEGATIVE) 11/28/20 10:05 Urine Mucus Few /HPF (NEGATIVE) 11/28/20 10:05 Ur Culture Indicated? Yes/culture set up 11/28/20 10:05 Urine Opiates Screen Negative (NEG=<300) 11/28/20 10:05 Urine Methadone Screen Negative (NEG=<300) 11/28/20 10:05 Ur Barbiturates Screen Negative (NEG=<200) 11/28/20 10:05 Ur Phencyclidine Scrn Negative (NEG=<25) 11/28/20 10:05 Ur Amphetamines Screen Negative (NEG=<1000) 11/28/20 10:05 U Benzodiazepines Scrn Positive (NEG=<200) A 11/28/20 10:05 Urine Cocaine Screen Negative (NEG=<300) 11/28/20 10:05 U Marijuana (THC) Screen Negative (NEG=<50) 11/28/20 10:05 Influenza Type A Ag Negative-presumptive (NEGATIVE) 11/28/20 11:10 Influenza Type B Ag Negative-presumptive (NEGATIVE) 11/28/20 11:10 SARS CoV-2 RNA Rapid TERRI Negative (NEGATIVE) 11/28/20 11:10 Plan (1) Mental status alteration: Status: Acute Qualifiers: Altered mental status type: somnolence Qualified Code(s): R40.0 - Somnolence Plan: Continue to monitor MRI ordered (2) Hypoglycemia: Status: Acute Plan: SSI (3) Cystitis: Status: Acute Plan: Levaquin (4) Hypokalemia: Status: Acute Plan: Replete per protocol (5) Acute renal insufficiency: Status: Acute Plan: IVF
[2020-11-30] MEDS: MAGNESIUM SULFATE 1 GRAM/100 mL PREMIX 1 GM/100 ML BAG IV PRN ×2 (16:06→18:08)
[2020-11-30] MEDS: CRESTOR TAB 10 MG PO SCH (20:19)
[2020-12-01] MEDS: NS 1000 ML 1,000 ML IV SCH ×4 (03:50→20:58)
[2020-12-01 06:42] LABS: BASOPHILS % (AUTO) 0.7 % (0.2-1.0); EOSINOPHILS # (AUTO) 0.2 x10^3/uL (0.0-0.2); EOSINOPHILS % (AUTO) 2.6 % (0.9-2.9); HEMATOCRIT 28.8 % (36.0-47.0); HEMOGLOBIN 9.8 g/dL (12.0-16.0); LYMPHOCYTES # (AUTO) 2.1 X10^3/uL (1.3-2.9); LYMPHOCYTES % (AUTO) 31.4 % (21.0-51.0); MEAN CORPUSCULAR HEMOGLOBIN 27.7 pg (27.0-34.0); MEAN CORPUSCULAR HGB CONC 34.1 g/dL (33.0-35.0); MEAN CORPUSCULAR VOLUME 81.2 fL (80.0-100.0); MEAN PLATELET VOLUME 7.2 fL (7.4-11.0); MONOCYTES # (AUTO) 0.5 x10^3/uL (0.3-0.8); MONOCYTES % (AUTO) 7.8 % (0.0-13.0); NEUTROPHILS # (AUTO) 3.9 x10^3/uL (2.2-4.8); NEUTROPHILS % (AUTO) 57.5 % (42.0-75.0); PLATELET COUNT 300 X10^3/uL (150.0-450.0); RED BLOOD COUNT 3.55 X10^6/uL (3.5-5.4); RED CELL DISTRIBUTION WIDTH 18.1 % (11.6-16.5); WHITE BLOOD COUNT 6.7 X10^3/uL (3.6-10.0)
[2020-12-01 07:07] LABS: ALBUMIN 2.5 g/dL (3.4-5.0); CALCIUM 8.2 mg/dL (8.5-10.1); CARBON DIOXIDE 25.6 mmol/L (21-32); COR CA(FOR HYPOALB) 9.4 mg/dL (8.5-10.1); CREATININE 1.36 mg/dL (0.55-1.02); MAGNESIUM 1.9 mg/dL (1.7-2.9); TOTAL PROTEIN 5.4 g/dL (6.4-8.2)
[2020-12-01] MEDS: NORVASC TAB 10 MG PO SCH (09:16)
[2020-12-01] MEDS: PLAVIX PO SCH (09:16)
[2020-12-01] MEDS: LYRICA CAP 150 mg PO SCH ×2 (09:16→21:00)
[2020-12-01] MEDS: LOPRESSOR TAB 50 MG PO SCH (09:17)
[2020-12-01] MEDS: MICRO K EXTEN CAP 10 MEQ PO SCH ×2 (09:17→20:59)
[2020-12-01] MEDS: MILK OF MAGNESIA PO SCH (09:17)
[2020-12-01] MEDS: K-DUR TAB 20 MEQ PO PRN (09:18)
--- NOTE | 2020-12-01 15:55 | MRI ---
HISTORY[Hypokalemia, altered mental status]STUDYMRI brain without IV contrastCOMPARISON[CT 01/25/2019] and MRI 11/08/2016TECHNIQUEMultiplanar multi-sequence MRI of the brain was obtained without administration of IV contrast. 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 These are unchanged since prior MRI. Ventricular metastases would be unlikely etiology.[Paranasal sinuses and mastoid air cells appear clear.]IMPRESSIONLikely heterotopic short matter in the subependymal regions of the right lateral ventricle. These are unchanged since 11/08/2016 exam.Probable mild worsening of chronic small vessel ischemic changes in the white matter.Electronically signed by: Sukhjinder Jimenez (Dec 01, 2020 15:53:55)
[2020-12-01 20:29] LABS: BASOPHILS # (AUTO) 0.1 X10^3/uL (0.0-0.1); BASOPHILS % (AUTO) 1.2 % (0.2-1.0); EOSINOPHILS # (AUTO) 0.2 x10^3/uL (0.0-0.2); EOSINOPHILS % (AUTO) 1.7 % (0.9-2.9); HEMATOCRIT 31.6 % (36.0-47.0); HEMOGLOBIN 10.4 g/dL (12.0-16.0); LYMPHOCYTES # (AUTO) 2.2 X10^3/uL (1.3-2.9); LYMPHOCYTES % (AUTO) 25.6 % (21.0-51.0); MEAN CORPUSCULAR HGB CONC 33.1 g/dL (33.0-35.0); MEAN CORPUSCULAR VOLUME 81.6 fL (80.0-100.0); MEAN PLATELET VOLUME 7.1 fL (7.4-11.0); MONOCYTES # (AUTO) 0.6 x10^3/uL (0.3-0.8); MONOCYTES % (AUTO) 6.8 % (0.0-13.0); NEUTROPHILS # (AUTO) 5.6 x10^3/uL (2.2-4.8); NEUTROPHILS % (AUTO) 64.7 % (42.0-75.0); PLATELET COUNT 344 X10^3/uL (150.0-450.0); RED BLOOD COUNT 3.87 X10^6/uL (3.5-5.4); RED CELL DISTRIBUTION WIDTH 18.4 % (11.6-16.5); WHITE BLOOD COUNT 8.7 X10^3/uL (3.6-10.0)
[2020-12-01 20:38] LABS: ALBUMIN 2.6 g/dL (3.4-5.0); CALCIUM 8.4 mg/dL (8.5-10.1); CARBON DIOXIDE 26.6 mmol/L (21-32); COR CA(FOR HYPOALB) 9.5 mg/dL (8.5-10.1); CREATININE 1.54 mg/dL (0.55-1.02); TOTAL PROTEIN 5.7 g/dL (6.4-8.2)
[2020-12-01] MEDS: CRESTOR TAB 10 MG PO SCH (21:00)
[2020-12-01] MEDS: NORCO 7.5/325 MG TAB PO PRN (21:00)
[2020-12-01] MEDS ORDERED: COLACE CAP 100 MG PO SCH (21:00)
[2020-12-02] MEDS: NS 1000 ML 1,000 ML IV SCH ×2 (05:17→12:45)
[2020-12-02 06:14] LABS: BASOPHILS % (AUTO) 0.2 % (0.2-1.0); EOSINOPHILS # (AUTO) 0.2 x10^3/uL (0.0-0.2); EOSINOPHILS % (AUTO) 2.6 % (0.9-2.9); HEMATOCRIT 27.5 % (36.0-47.0); HEMOGLOBIN 9.2 g/dL (12.0-16.0); LYMPHOCYTES % (AUTO) 37.2 % (21.0-51.0); MEAN CORPUSCULAR HEMOGLOBIN 27.4 pg (27.0-34.0); MEAN CORPUSCULAR HGB CONC 33.5 g/dL (33.0-35.0); MEAN CORPUSCULAR VOLUME 81.7 fL (80.0-100.0); MEAN PLATELET VOLUME 7.3 fL (7.4-11.0); MONOCYTES # (AUTO) 0.6 x10^3/uL (0.3-0.8); MONOCYTES % (AUTO) 7.6 % (0.0-13.0); NEUTROPHILS # (AUTO) 4.2 x10^3/uL (2.2-4.8); NEUTROPHILS % (AUTO) 52.4 % (42.0-75.0); PLATELET COUNT 276 X10^3/uL (150.0-450.0); RED BLOOD COUNT 3.37 X10^6/uL (3.5-5.4); RED CELL DISTRIBUTION WIDTH 18.1 % (11.6-16.5); WHITE BLOOD COUNT 8.1 X10^3/uL (3.6-10.0)
[2020-12-02 06:29] LABS: ALBUMIN 2.3 g/dL (3.4-5.0); CALCIUM 8.1 mg/dL (8.5-10.1); CARBON DIOXIDE 26.6 mmol/L (21-32); COR CA(FOR HYPOALB) 9.5 mg/dL (8.5-10.1); CREATININE 1.4 mg/dL (0.55-1.02); TOTAL PROTEIN 5.2 g/dL (6.4-8.2)
[2020-12-02] MEDS: MILK OF MAGNESIA PO SCH (08:48)
[2020-12-02] MEDS: MICRO K EXTEN CAP 10 MEQ PO SCH (08:49)
[2020-12-02] MEDS: PLAVIX PO SCH (08:49)
[2020-12-02] MEDS: LYRICA CAP 150 mg PO SCH (08:49)
[2020-12-02] MEDS: LOPRESSOR TAB 50 MG PO SCH (08:49)
[2020-12-02] MEDS: NORVASC TAB 10 MG PO SCH (08:49)
[2020-12-02] MEDS: LEVAQUIN PREMIX IV 500 MG 500 MG/100 ML BAG IV SCH (08:49)
[2020-12-02] MEDS ORDERED: LANTUS SC SCH (09:00)
--- NOTE | 2020-12-02 10:39 | PCM.PROG ---
Progress Note Progress Note for Day of Date of Exam: 12/01/20 Subjective Subjective: Pt is a 75 year old female past medical history of HTN, DMT2, admitted for altered mental status, hypoglycemia, cystitis, acute renal insufficiency. Pt is eating breakfast this morning, no concerns. Labs/imaging: Wbc 6.7, Hgb 9.8, Platelet 300, Na 142, K 3.3, Creatinine 1.36, Glucose 195, Bl ood culture negative, Urine culture positive pseudomonas aur. susceptible to Levaquin, Treatment course includes IVF NS@125ml/h. Renal function back to baseline. Continue Levaquin for urinary tract infection. Keep on sliding scale insulin and follow FSBG. Concern over CT head revealing nodules, MRI brain scheduled today. Hypokalemia on labs, replete per protocol. Otherwise continue current treatment plan, monitor and follow up labs/imaging in the morning. Past Medical Family Social History Past Med/Fam/Surg Hx: No changes since H&P Allergies: Allergies shellfish derived Allergy (Verified 09/13/19 10:56) Review of Systems ROS: No change since H&P Vital Signs and I&O's Vital Signs: Temperature 98.7 F Pulse Rate [Apical] 71 Pulse Rate 46 Respiratory Rate 16 Blood Pressure [Left Arm] 143/67 Blood Pressure [Right Arm] 140/62 Blood Pressure 97/55 O2 Sat by Pulse Oximetry 96 Intake and Output: Intake & Output 11/29/20 11/30/20 12/01/20 12/02/20 23:59 23:59 23:59 23:59 Intake Total 2366 / 2366 2404 / 2404 1783 / 1783 870 / 870 Output Total 1500 / 1500 2200 / 2200 1625 / 1625 325 / 325 Balance 866 / 866 204 / 204 158 / 158 545 / 545 Physical Exam Oriented: Normal Eyes: Normal Ear: Normal Nose: Normal Throat: Normal Respiratory: Normal Cardiovascular: Normal : Normal Auscultation: Bowel Sounds: Normal Tenderness: Normal Skin: Normal Musculoskeletal: Normal Psychiatric: Normal Mood Description: Calm Affect: Normal Speech Pattern: Clear and Appropriate Laboratory and Diagnostics Result Diagrams: 12/02/20 04:20 12/02/20 04:20 Labs: 11/28/20 10:10 Blood Blood Culture - Preliminary 11/28/20 10:05 Blood Blood Culture - Preliminary 11/28/20 10:05 Urine,Catheterized Urine Culture - Final Pseudomonas Aeruginosa Laboratory WBC 8.1 X10^3/uL (3.6-10.0) 12/02/20 04:20 RBC 3.37 X10^6/uL (3.5-5.4) L 12/02/20 04:20 Hgb 9.2 g/dL (12.0-16.0) L 12/02/20 04:20 Hct 27.5 % (36.0-47.0) L 12/02/20 04:20 MCV 81.7 fL (80.0-100.0) 12/02/20 04:20 MCH 27.4 pg (27.0-34.0) 12/02/20 04:20 MCHC 33.5 g/dL (33.0-35.0) 12/02/20 04:20 RDW 18.1 % (11.6-16.5) H 12/02/20 04:20 Plt Count 276 X10^3/uL (150.0-450.0) 12/02/20 04:20 MPV 7.3 fL (7.4-11.0) L 12/02/20 04:20 Neut % (Auto) 52.4 % (42.0-75.0) 12/02/20 04:20 Lymph % (Auto) 37.2 % (21.0-51.0) 12/02/20 04:20 [place] % (Auto) 7.6 % (0.0-13.0) 12/02/20 04:20 Eos % (Auto) 2.6 % (0.9-2.9) 12/02/20 04:20 Baso % (Auto) 0.2 % (0.2-1.0) 12/02/20 04:20 Neut # (Auto) 4.2 x10^3/uL (2.2-4.8) 12/02/20 04:20 Lymph # (Auto) 3.0 X10^3/uL (1.3-2.9) H 12/02/20 04:20 [place] # (Auto) 0.6 x10^3/uL (0.3-0.8) 12/02/20 04:20 Eos # (Auto) 0.2 x10^3/uL (0.0-0.2) 12/02/20 04:20 Baso # (Auto) 0.0 X10^3/uL (0.0-0.1) 12/02/20 04:20 Absolute Nucleated RBC 0.0 /100WBC 12/02/20 04:20 Sodium 143 mmol/L (136-145) 12/02/20 04:20 Corrected Sodium 144 mmol/L (136-145) 12/02/20 04:20 Potassium 3.3 mmol/L (3.5-5.1) L 12/02/20 04:20 Chloride 110 mmol/L (98-107) H 12/02/20 04:20 Carbon Dioxide 26.6 mmol/L (21-32) 12/02/20 04:20 BUN 9 mg/dL (7-18) 12/02/20 04:20 Creatinine 1.40 mg/dL (0.55-1.02) H 12/02/20 04:20 Est GFR (MDRD) Af Amer 47 (>60) L 12/02/20 04:20 Est GFR (MDRD) Non-Af 39 (>60) L 12/02/20 04:20 Glucose 136 mg/dL (65-99) H 12/02/20 04:20 POC Glucose (mg/dL) 118 mg/dL (65-99) H 12/02/20 05:06 Calcium 8.1 mg/dL (8.5-10.1) L 12/02/20 04:20 Corrected Calcium 9.5 mg/dL (8.5-10.1) 12/02/20 04:20 Magnesium 1.7 mg/dL (1.7-2.9) 12/02/20 04:20 Total Bilirubin 0.20 mg/dL (0.2-1.0) 12/02/20 04:20 AST 10 Units/L (15-37) L 12/02/20 04:20 ALT 10 Units/L (12-78) L 12/02/20 04:20 Alkaline Phosphatase 49 Units/L (46-116) 12/02/20 04:20 Ammonia < 10 umol/L (11-32) L 11/28/20 10:05 Creatine Kinase 87 Units/L (26-192) 11/28/20 22:00 CK-MB (CK-2) 1.9 ng/mL (0-4.0) 11/28/20 22:00 CK/CKMB % Calc 2.2 % (<4) 11/28/20 22:00 Troponin I < 0.02 ng/mL (0-1.5) 11/28/20 22:00 Total Protein 5.2 g/dL (6.4-8.2) L 12/02/20 04:20 Albumin 2.3 g/dL (3.4-5.0) L 12/02/20 04:20 Globulin 2.9 g/dL (2.5-4.5) 12/02/20 04:20 Albumin/Globulin Ratio 0.8 Ratio (1.1-2.1) L 12/02/20 04:20 Specimen Type Catherized urine 11/28/20 10:05 Urine Color Yellow (YELLOW) 11/28/20 10:05 Urine Appearance Hazy (CLEAR) 11/28/20 10:05 Urine pH 6.0 (5.0 - 8.0) 11/28/20 10:05 Ur Specific [place] 1.010 (1.000-1.030) 11/28/20 10:05 Urine Protein 2+ (NEGATIVE) 11/28/20 10:05 Urine Glucose (UA) Negative (NEGATIVE) 11/28/20 10:05 Urine Ketones Negative (NEGATIVE) 11/28/20 10:05 Urine Occult Blood 2+ (NEGATIVE) 11/28/20 10:05 Urine Nitrite Negative (NEGATIVE) 11/28/20 10:05 Urine Bilirubin Negative (NEGATIVE) 11/28/20 10:05 Urine Urobilinogen Normal (NORMAL) 11/28/20 10:05 Ur Leukocyte Esterase 3+ (NEGATIVE) 11/28/20 10:05 Urine RBC 3-5 /HPF (0-3) A 11/28/20 10:05 Urine WBC Tntc /HPF (0-5) A 11/28/20 10:05 Ur Squamous Epith Cells Rare /HPF (NEGATIVE) 11/28/20 10:05 Urine Bacteria 2+ /HPF (NEGATIVE) 11/28/20 10:05 Urine Mucus Few /HPF (NEGATIVE) 11/28/20 10:05 Ur Culture Indicated? Yes/culture set up 11/28/20 10:05 Urine Opiates Screen Negative (NEG=<300) 11/28/20 10:05 Urine Methadone Screen Negative (NEG=<300) 11/28/20 10:05 Ur Barbiturates Screen Negative (NEG=<200) 11/28/20 10:05 Ur Phencyclidine Scrn Negative (NEG=<25) 11/28/20 10:05 Ur Amphetamines Screen Negative (NEG=<1000) 11/28/20 10:05 U Benzodiazepines Scrn Positive (NEG=<200) A 11/28/20 10:05 Urine Cocaine Screen Negative (NEG=<300) 11/28/20 10:05 U Marijuana (THC) Screen Negative (NEG=<50) 11/28/20 10:05 Influenza Type A Ag Negative-presumptive (NEGATIVE) 11/28/20 11:10 Influenza Type B Ag Negative-presumptive (NEGATIVE) 11/28/20 11:10 SARS CoV-2 RNA Rapid TERRI Negative (NEGATIVE) 11/28/20 11:10 Plan (1) Mental status alteration: Status: Acute Qualifiers: Altered mental status type: somnolence Qualified Code(s): R40.0 - Somnolence Plan: Continue to monitor MRI ordered (2) Hypoglycemia: Status: Acute Plan: SSI (3) Cystitis: Status: Acute Plan: Levaquin (4) Hypokalemia: Status: Acute Plan: Replete per protocol (5) Acute renal insufficiency: Status: Acute Plan: IVF
--- NOTE | 2020-12-02 10:53 | W.DIS.FURT ---
Summary of Discharge Discharge Summary of Date Date of Exam: 12/02/20 Admission Date Date of Admission: 11/28/20 Admission Diagnosis Patient Problems (Updated 11/30/20 @ 11:38 by Waqas Meyer) Hypokalemia (Acute) E87.6 Hypoglycemia (Acute) E16.2 Hypothermia (Acute) T68.XXXA Mental status alteration (Acute) R41.82 Hospital Course: Pt is a 75 year old female past medical history of HTN, DMT2, admitted for altered mental status, hypoglycemia, cystitis, acute renal insufficiency. Patient's treatment course included IVF, SSI, Levaquin. Labs/imaging: Wbc 8.1, Hgb 9.2, Platelet 276, Na 143, K 3.3, Creatinine 1.40, Glucose 136, Blood culture negative, Urine culture positive pseudomonas aur. susceptible to Levaquin. Pt responded well to treatments. Glucose level stabilized and patient only required 4 units of SSI in 24 hour period. Instructed to decrease Lantus to 3 units daily and take at breakfast instead of at night. Renal function back to baseline. Rx Levaquin x4 days for urinary tract infection. 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 These are unchanged since 11/08/2016 exam. Probable mild worsening of chronic small vessel ischemic changes in the white matter. Discussed results with patient and can be monitored outpatient. Pt discharged in stable condition, instructed to follow up with pcp in 3-5 days. Vital Signs: Vital Signs (72 hours) 11/29/20 11:00 11/29/20 12:00 11/29/20 13:00 Temperature 98.3 F Pulse Rate [Apical] 78 71 76 Respiratory Rate 21 20 18 Blood Pressure [Left Arm] 203/92 185/77 195/84 Blood Pressure [Right Arm] O2 Sat by Pulse Oximetry 100 100 100 11/29/20 13:37 11/29/20 14:00 11/29/20 14:37 Temperature Pulse Rate [Apical] 72 Respiratory Rate 19 18 19 Blood Pressure [Left Arm] 177/78 Blood Pressure [Right Arm] O2 Sat by Pulse Oximetry 100 11/29/20 15:00 11/29/20 16:00 11/29/20 17:00 Temperature 98.3 F Pulse Rate [Apical] 73 79 67 Respiratory Rate 20 20 18 Blood Pressure [Left Arm] 167/77 175/81 174/81 Blood Pressure [Right Arm] O2 Sat by Pulse Oximetry 100 100 100 11/29/20 18:00 11/29/20 19:00 11/29/20 20:00 Temperature Pulse Rate [Apical] 73 78 71 Respiratory Rate 20 18 18 Blood Pressure [Left Arm] 174/79 162/75 157/74 Blood Pressure [Right Arm] O2 Sat by Pulse Oximetry 100 100 100 11/29/20 21:00 11/29/20 22:00 11/29/20 23:00 Temperature Pulse Rate [Apical] 70 67 65 Respiratory Rate 20 20 18 Blood Pressure [Left Arm] 152/72 147/68 Blood Pressure [Right Arm] 140/66 O2 Sat by Pulse Oximetry 100 100 100 11/30/20 00:00 11/30/20 00:17 11/30/20 01:00 Temperature Pulse Rate [Apical] 64 65 Respiratory Rate 18 18 18 Blood Pressure [Left Arm] 158/67 157/72 Blood Pressure [Right Arm] O2 Sat by Pulse Oximetry 100 100 11/30/20 01:17 11/30/20 02:00 11/30/20 03:00 Temperature Pulse Rate [Apical] 64 63 Respiratory Rate 18 16 18 Blood Pressure [Left Arm] 151/70 152/68 Blood Pressure [Right Arm] O2 Sat by Pulse Oximetry 100 100 11/30/20 04:00 11/30/20 05:00 11/30/20 06:00 Temperature Pulse Rate [Apical] 63 65 63 Respiratory Rate 18 18 18 Blood Pressure [Left Arm] 154/72 144/67 Blood Pressure [Right Arm] 150/62 O2 Sat by Pulse Oximetry 100 100 100 11/30/20 07:00 11/30/20 08:00 11/30/20 09:00 Temperature 97.5 F L Pulse Rate [Apical] 63 65 66 Respiratory Rate 22 21 20 Blood Pressure [Left Arm] 172/75 164/78 152/74 Blood Pressure [Right Arm] O2 Sat by Pulse Oximetry 100 100 100 11/30/20 10:00 11/30/20 11:00 11/30/20 12:00 Temperature 98.5 F Pulse Rate [Apical] 64 67 72 Respiratory Rate 20 20 21 Blood Pressure [Left Arm] 138/67 163/75 167/79 Blood Pressure [Right Arm] O2 Sat by Pulse Oximetry 100 100 100 11/30/20 13:00 11/30/20 14:00 11/30/20 15:00 Temperature Pulse Rate [Apical] 76 74 80 Respiratory Rate 22 21 23 Blood Pressure [Left Arm] 156/79 155/74 143/69 Blood Pressure [Right Arm] O2 Sat by Pulse Oximetry 100 100 100 11/30/20 16:00 11/30/20 17:00 11/30/20 18:00 Temperature 98.5 F Pulse Rate [Apical] 72 76 73 Respiratory Rate 22 21 22 Blood Pressure [Left Arm] 166/79 154/75 150/69 Blood Pressure [Right Arm] O2 Sat by Pulse Oximetry 100 100 100 11/30/20 18:09 11/30/20 19:00 11/30/20 19:09 Temperature Pulse Rate [Apical] 70 Respiratory Rate 19 16 18 Blood Pressure [Left Arm] Blood Pressure [Right Arm] 153/73 O2 Sat by Pulse Oximetry 98 11/30/20 20:00 11/30/20 21:00 11/30/20 22:00 Temperature 98.3 F Pulse Rate [Apical] 72 70 73 Respiratory Rate 18 14 18 Blood Pressure [Left Arm] 193/87 Blood Pressure [Right Arm] 172/82 168/79 O2 Sat by Pulse Oximetry 98 98 99 11/30/20 23:00 12/01/20 00:00 12/01/20 01:00 Temperature 98.2 F Pulse Rate [Apical] 70 69 70 Respiratory Rate 16 12 14 Blood Pressure [Left Arm] 156/72 177/81 156/74 Blood Pressure [Right Arm] O2 Sat by Pulse Oximetry 98 98 98 12/01/20 02:00 12/01/20 03:00 12/01/20 04:00 Temperature Pulse Rate [Apical] 71 76 74 Respiratory Rate 14 14 16 Blood Pressure [Left Arm] 150/72 162/75 157/80 Blood Pressure [Right Arm] O2 Sat by Pulse Oximetry 97 99 97 12/01/20 05:00 12/01/20 06:00 12/01/20 07:00 Temperature Pulse Rate [Apical] 71 75 73 Respiratory Rate 12 14 12 Blood Pressure [Left Arm] Blood Pressure [Right Arm] 171/77 173/75 167/75 O2 Sat by Pulse Oximetry 100 98 98 12/01/20 08:00 12/01/20 09:00 12/01/20 10:00 Temperature 98.6 F Pulse Rate [Apical] 88 81 83 Respiratory Rate 16 20 16 Blood Pressure [Left Arm] Blood Pressure [Right Arm] 171/78 151/72 167/80 O2 Sat by Pulse Oximetry 100 99 100 12/01/20 11:00 12/01/20 12:00 12/01/20 14:00 Temperature 99.1 F Pulse Rate [Apical] 78 83 81 Respiratory Rate 16 18 16 Blood Pressure [Left Arm] Blood Pressure [Right Arm] 158/74 155/70 190/84 O2 Sat by Pulse Oximetry 99 98 99 12/01/20 15:00 12/01/20 16:00 12/01/20 17:00 Temperature 99.3 F Pulse Rate [Apical] 76 76 86 Respiratory Rate 18 18 16 Blood Pressure [Left Arm] Blood Pressure [Right Arm] 159/74 143/65 159/80 O2 Sat by Pulse Oximetry 99 98 98 12/01/20 18:00 12/01/20 19:00 12/01/20 20:00 Temperature 98.9 F Pulse Rate [Apical] 84 90 94 H Respiratory Rate 16 18 20 Blood Pressure [Left Arm] Blood Pressure [Right Arm] 152/72 170/79 155/74 O2 Sat by Pulse Oximetry 97 98 97 12/01/20 21:00 12/01/20 22:00 12/01/20 23:00 Temperature Pulse Rate [Apical] 88 84 85 Respiratory Rate 18 18 14 Blood Pressure [Left Arm] Blood Pressure [Right Arm] 161/77 139/66 137/65 O2 Sat by Pulse Oximetry 97 97 96 12/02/20 00:00 12/02/20 01:00 12/02/20 02:00 Temperature 100.7 F H Pulse Rate [Apical] 82 78 76 Respiratory Rate 16 12 14 Blood Pressure [Left Arm] Blood Pressure [Right Arm] 142/67 154/74 147/67 O2 Sat by Pulse Oximetry 97 96 98 12/02/20 03:00 12/02/20 04:00 12/02/20 05:00 Temperature 98.8 F Pulse Rate [Apical] 72 70 73 Respiratory Rate 12 12 10 L Blood Pressure [Left Arm] Blood Pressure [Right Arm] 123/60 127/60 150/64 O2 Sat by Pulse Oximetry 96 96 98 12/02/20 06:00 12/02/20 07:00 12/02/20 08:00 Temperature 98.7 F Pulse Rate [Apical] 70 72 71 Respiratory Rate 12 12 16 Blood Pressure [Left Arm] 152/67 143/67 Blood Pressure [Right Arm] 140/62 O2 Sat by Pulse Oximetry 97 96 96 Labs: Laboratory Last Values WBC 8.1 X10^3/uL (3.6-10.0) 12/02/20 04:20 RBC 3.37 X10^6/uL (3.5-5.4) L 12/02/20 04:20 Hgb 9.2 g/dL (12.0-16.0) L 12/02/20 04:20 Hct 27.5 % (36.0-47.0) L 12/02/20 04:20 MCV 81.7 fL (80.0-100.0) 12/02/20 04:20 MCH 27.4 pg (27.0-34.0) 12/02/20 04:20 MCHC 33.5 g/dL (33.0-35.0) 12/02/20 04:20 RDW 18.1 % (11.6-16.5) H 12/02/20 04:20 Plt Count 276 X10^3/uL (150.0-450.0) 12/02/20 04:20 MPV 7.3 fL (7.4-11.0) L 12/02/20 04:20 Neut % (Auto) 52.4 % (42.0-75.0) 12/02/20 04:20 Lymph % (Auto) 37.2 % (21.0-51.0) 12/02/20 04:20 [place] % (Auto) 7.6 % (0.0-13.0) 12/02/20 04:20 Eos % (Auto) 2.6 % (0.9-2.9) 12/02/20 04:20 Baso % (Auto) 0.2 % (0.2-1.0) 12/02/20 04:20 Neut # (Auto) 4.2 x10^3/uL (2.2-4.8) 12/02/20 04:20 Lymph # (Auto) 3.0 X10^3/uL (1.3-2.9) H 12/02/20 04:20 [place] # (Auto) 0.6 x10^3/uL (0.3-0.8) 12/02/20 04:20 Eos # (Auto) 0.2 x10^3/uL (0.0-0.2) 12/02/20 04:20 Baso # (Auto) 0.0 X10^3/uL (0.0-0.1) 12/02/20 04:20 Absolute Nucleated RBC 0.0 /100WBC 12/02/20 04:20 Sodium 143 mmol/L (136-145) 12/02/20 04:20 Corrected Sodium 144 mmol/L (136-145) 12/02/20 04:20 Potassium 3.3 mmol/L (3.5-5.1) L 12/02/20 04:20 Chloride 110 mmol/L (98-107) H 12/02/20 04:20 Carbon Dioxide 26.6 mmol/L (21-32) 12/02/20 04:20 BUN 9 mg/dL (7-18) 12/02/20 04:20 Creatinine 1.40 mg/dL (0.55-1.02) H 12/02/20 04:20 Est GFR (MDRD) Af Amer 47 (>60) L 12/02/20 04:20 Est GFR (MDRD) Non-Af 39 (>60) L 12/02/20 04:20 Glucose 136 mg/dL (65-99) H 12/02/20 04:20 POC Glucose (mg/dL) 118 mg/dL (65-99) H 12/02/20 05:06 Calcium 8.1 mg/dL (8.5-10.1) L 12/02/20 04:20 Corrected Calcium 9.5 mg/dL (8.5-10.1) 12/02/20 04:20 Magnesium 1.7 mg/dL (1.7-2.9) 12/02/20 04:20 Total Bilirubin 0.20 mg/dL (0.2-1.0) 12/02/20 04:20 AST 10 Units/L (15-37) L 12/02/20 04:20 ALT 10 Units/L (12-78) L 12/02/20 04:20 Alkaline Phosphatase 49 Units/L (46-116) 12/02/20 04:20 Ammonia < 10 umol/L (11-32) L 11/28/20 10:05 Creatine Kinase 87 Units/L (26-192) 11/28/20 22:00 CK-MB (CK-2) 1.9 ng/mL (0-4.0) 11/28/20 22:00 CK/CKMB % Calc 2.2 % (<4) 11/28/20 22:00 Troponin I < 0.02 ng/mL (0-1.5) 11/28/20 22:00 Total Protein 5.2 g/dL (6.4-8.2) L 12/02/20 04:20 Albumin 2.3 g/dL (3.4-5.0) L 12/02/20 04:20 Globulin 2.9 g/dL (2.5-4.5) 12/02/20 04:20 Albumin/Globulin Ratio 0.8 Ratio (1.1-2.1) L 12/02/20 04:20 Specimen Type Catherized urine 11/28/20 10:05 Urine Color Yellow (YELLOW) 11/28/20 10:05 Urine Appearance Hazy (CLEAR) 11/28/20 10:05 Urine pH 6.0 (5.0 - 8.0) 11/28/20 10:05 Ur Specific [place] 1.010 (1.000-1.030) 11/28/20 10:05 Urine Protein 2+ (NEGATIVE) 11/28/20 10:05 Urine Glucose (UA) Negative (NEGATIVE) 11/28/20 10:05 Urine Ketones Negative (NEGATIVE) 11/28/20 10:05 Urine Occult Blood 2+ (NEGATIVE) 11/28/20 10:05 Urine Nitrite Negative (NEGATIVE) 11/28/20 10:05 Urine Bilirubin Negative (NEGATIVE) 11/28/20 10:05 Urine Urobilinogen Normal (NORMAL) 11/28/20 10:05 Ur Leukocyte Esterase 3+ (NEGATIVE) 11/28/20 10:05 Urine RBC 3-5 /HPF (0-3) A 11/28/20 10:05 Urine WBC Tntc /HPF (0-5) A 11/28/20 10:05 Ur Squamous Epith Cells Rare /HPF (NEGATIVE) 11/28/20 10:05 Urine Bacteria 2+ /HPF (NEGATIVE) 11/28/20 10:05 Urine Mucus Few /HPF (NEGATIVE) 11/28/20 10:05 Ur Culture Indicated? Yes/culture set up 11/28/20 10:05 Urine Opiates Screen Negative (NEG=<300) 11/28/20 10:05 Urine Methadone Screen Negative (NEG=<300) 11/28/20 10:05 Ur Barbiturates Screen Negative (NEG=<200) 11/28/20 10:05 Ur Phencyclidine Scrn Negative (NEG=<25) 11/28/20 10:05 Ur Amphetamines Screen Negative (NEG=<1000) 11/28/20 10:05 U Benzodiazepines Scrn Positive (NEG=<200) A 11/28/20 10:05 Urine Cocaine Screen Negative (NEG=<300) 11/28/20 10:05 U Marijuana (THC) Screen Negative (NEG=<50) 11/28/20 10:05 Influenza Type A Ag Negative-presumptive (NEGATIVE) 11/28/20 11:10 Influenza Type B Ag Negative-presumptive (NEGATIVE) 11/28/20 11:10 SARS CoV-2 RNA Rapid TERRI Negative (NEGATIVE) 11/28/20 11:10 Reason For Visit: AMS, hypothermia, hypokalemia, uti Discharge Date Discharge Date: 12/02/20 Discharge Diagnosis All Active Problems (Updated 11/30/20 @ 11:38 by Waqas Meyer) Acute renal insufficiency (Acute) Cystitis (Acute) Hx of heart bypass surgery (Chronic) CAD (coronary artery disease) (Chronic) Hyperlipidemia (Chronic) GERD (gastroesophageal reflux disease) (Chronic) Diabetes (Chronic) Hypoglycemia due to insulin (Acute) Closed left fibular fracture (Acute) Hypokalemia (Acute) Hypoglycemia (Acute) Atrial fibrillation (Acute) Hypothermia (Acute) Mental status alteration (Acute) Hypertension (Chronic) Hypoglycemia (Acute) Plan of Treatment: Continue with present treatment and follow up plan. Pt is to keep follow up appointment as instructed and take medications as ordered. Discharge Medications Discharge Medications: shellfish derived Allergy (Verified 09/13/19 10:56) New Prescriptions Lantus Solostar U-100 Insulin 3 unit SUBCUT DAILY #0 ml 12/02/20 [Rx] levofloxacin 500 mg PO Q24H 4 Days #4 tab 12/02/20 [Rx] Follow up and Referral Follow Up: 1 Week Discharge Disposition Assessment: Stable no acute distress noted at discharge. Discharge Disposition: Home Discharge Condition: Stable Discharge Plan Discharge Plan Hospital Course: Pt is a 75 year old female past medical history of HTN, DMT2, admitted for altered mental status, hypoglycemia, cystitis, acute renal insufficiency. Patient's treatment course included IVF, SSI, Levaquin. Labs/imaging: Wbc 8.1, Hgb 9.2, Platelet 276, Na 143, K 3.3, Creatinine 1.40, Glucose 136, Blood culture negative, Urine culture positive pseudomonas aur. susceptible to Levaquin. Pt responded well to treatments. Glucose level stabilized and patient only required 4 units of SSI in 24 hour period. Instructed to decrease Lantus to 3 units daily and take at breakfast instead of at night. Renal function back to baseline. Rx Levaquin x4 days for urinary tract infection. 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 These are unchanged since 11/08/2016 exam. Probable mild worsening of chronic small vessel ischemic changes in the white matter. Discussed results with patient and can be monitored outpatient. Pt discharged in stable condition, instructed to follow up with pcp in 3-5 days. Patient Disposition: 01 HOME, SELF-CARE Condition: Stable Health Concerns: Post Hospitalization: new medications and changes needed to prevent readmission or further decline. Pt educated and given instructions on all concerns. Care Plan Goals: Problem: Infection Goal: Temperature within normal limits. Resolved infection. Instructions: Follow provided instructions. Follow up with primary physician as directed. Contact primary care physician or report to the closest Emergency Room if condition worsens. Plan of Treatment: Continue with present treatment and follow up plan. Pt is to keep follow up a ppointment as instructed and take medications as ordered. Assessment: Stable no acute distress noted at discharge. Prescriptions: New levofloxacin 500 mg tablet 500 mg PO Q24H 4 Days Qty: 4 RF: 0 Continued Potassium Chloride [Potassium Chloride ER] 10 MEQ Tab 1 tab PO BID RF: 0 amlodipine 10 MG tablet 1 tab PO DAILY RF: 0 Metoprolol Tartrate 50 MG Tab 1 tab PO DAILY RF: 0 pregabalin [Lyrica] 150 MG capsule 1 cap PO BID RF: 0 Benazepril HCl 40 MG Tab 1 tab PO DAILY RF: 0 clopidogrel [Plavix] 75 MG tablet 1 tab PO DAILY RF: 0 Nitroglycerin [Nitroglycerin Transdermal] 0.4 MG/HR Ml 1 patch TOP DAILY RF: 0 rosuvastatin [Crestor] 10 MG tablet 10 mg PO HS Qty: 30 RF: 3 hydrocodone-acetaminophen 7.5 MG/325 MG tablet 1 tab PO Q8H PRN (Reason: Pain) Qty: 12 RF: 0 Changed Lantus Solostar U-100 Insulin 100 UNIT/ML insulin pen 3 unit SUBCUT DAILY Qty: 0 RF: 0 Follow ups/Referrals Follow ups/Referrals: NANCY KESSLER [Primary Care Provider] - 12/09/20 10:30 am (In the office for follow up appointment with BONG Ascencio.) Instructions Instructions: Fall Prevention in the Home, Adult, [id number], Hypokalemia, Type 1 Diabetes Mellitus, Diagnosis, Adult, Antibiotic Medicine, Adult, Urinary Tract Infection, Adult, Hypertension, [id number], Form - Blood Pressure Record Sheet, You've Been Prescribed an Antibiotic in the Hospital for an Infection - CDC (12/2017), Hypothermia Prevention, Rehydration, Elderly, Dehydration, Elderly, [id number], Blood Glucose Monitoring, Adult, Hypoglycemia, [id number] Stand Alone Forms: Excuse From Work or School, Precautions for COVID19, Patient Portal, Social Distancing
[2020-12-02 11:15] VITALS: BP 158/74
== END 2020-12-02 13:05 | disposition home or self-care (01) | DRG 690 ==
LOC: ER 09:52 → MED/SURG 11:47 → OBS 12:41 → MED/SURG 12:42
PROVIDERS: ADMIT Family Medicine; ATTEND Family Medicine
DX: T68.XXXA Hypothermia, initial encounter; I25.10 Atherosclerotic heart disease of native coronary artery without angina pectoris; R94.31 Abnormal electrocardiogram [ECG] [EKG]; N28.9 Disorder of kidney and ureter, unspecified; E11.649 Type 2 diabetes mellitus with hypoglycemia without coma; E78.2 Mixed hyperlipidemia; R26.89 Other abnormalities of gait and mobility; K21.9 Gastro-esophageal reflux disease without esophagitis; N30.90 Cystitis, unspecified without hematuria; E87.6 Hypokalemia; B96.5 Pseudomonas (aeruginosa) (mallei) (pseudomallei) as the cause of diseases classified elsewhere; Z20.822 Contact with and (suspected) exposure to COVID-19; R41.82 Altered mental status, unspecified